=== PATIENT | female | born 1945 | race Caucasian/White ===

== ENCOUNTER 2018-03-17 12:08 | Emergency (ER) | payer OTHER ==
--- OUTSIDE RECORDS SUMMARY | 2018-03-17 12:09 | XMS REPORT | Clinical Summary ---
:1945 Author Organization [facility] Address [address] [place] [address] Care Team Providers Name Role Phone Asked, No Pcp Primary Care Provider Unavailable Allergies Active Allergy Reactions Severity Noted Date Comments Codeine 10/31/2017 Hydrocodone Itching, Swelling, Rash Low 09/15/2017 Latex 10/31/2017 Methylprednisolone 09/15/2017 Morphine 10/31/2017 Nsaids (Non-Steroidal 10/31/2017 Anti-Inflammatory Drug) Penicillins 10/31/2017 Sulfa (Sulfonamide Antibiotics) 10/31/2017 Ketorolac 10/31/2017 Current Medications Prescription Sig. Disp. Refills Start Date End Date Status allopurinol 07/18/2017 Active (ZYLOPRIM) 300 MG tablet atorvastatin 07/18/2017 Active (LIPITOR) 40 MG tablet metoprolol tartrate 07/18/2017 Active (LOPRESSOR) 50 mg tablet potassium chloride 07/18/2017 Active (K-DUR) 20 MEQ CR tablet timolol (TIMOPTIC) 08/21/2017 Active 0.5 % ophthalmic solution torsemide (DEMADEX) 07/18/2017 Active 20 MG tablet aspirin (ECOTRIN) 81 Take 81 mg by Active MG enteric coated mouth daily. tablet Has not taken for two days ibuprofen Take 600 mg by Active (ADVIL,MOTRIN) 600 MG mouth every 8 tablet (eight) hours as needed for mild pain. lansoprazole Take 30 mg by Active (PREVACID) 30 MG mouth daily. capsule fluorouracil 5 % Apply Active solution topically. omeprazole (PriLOSEC) Take 40 mg by Active 40 MG capsule mouth daily. celecoxib (CeleBREX) Take 1 capsule 30 capsule 1 09/15/2017 10/15/2017 200 MG capsule (200 mg total) by mouth daily for 30 days. methocarbamol Take 1 tablet 90 tablet 1 09/15/2017 10/15/2017 (ROBAXIN-750) 750 MG (750 mg total) tablet by mouth 3 (three) times a day for 30 days. Active Problems Problem Noted Date Spondylosis of cervical region without myelopathy or radiculopathy 11/22/2017 Encounters Date Type Specialty Care Team Description 03/13/2018 Office Visit Orthopedic Surgery Raj Remy Trigger ring finger of Zaire CHAN MD left hand (Primary Dx) 11/22/2017 Office Visit Orthopedic Surgery Rubén Michelle Spondylosis of MD Danette cervical region without myelopathy or radiculopathy (Primary Dx) 10/31/2017 Hospital Encounter Radiology Rubén Michelle Cervical radiculopathy; MD Danette Osteoarthritis of spine with radiculopathy, cervical region 10/31/2017 Hospital Encounter Rubén Rouse Cervical radiculopathy; MD Danette Osteoarthritis of spine with radiculopathy, cervical region 10/09/2017 Orders Only Orthopedic Surgery Tal Baugh Cervical radiculopathy (Primary Dx); DEVIN Elliott Osteoarthritis of spine with radiculopathy, cervical region 09/15/2017 Office Visit Orthopedic Rubén Prajapati Cervical radiculopathy (Primary Dx); MD Danette Osteoarthritis of spine with radiculopathy, cervical region after 03/16/2017 Family History Medical History Relation Name Comments Cancer Father N Juan Holt Skin cancer Dementia Father N W Jonathon Heart disease Father N W Jonathon Stroke Father N W Jonathon Heart disease Sister Relation Name Status Comments Father N W Jonathon Mother Sister Social History Tobacco Use Types Packs/Day Years Used Date Former Smoker Cigarettes 2 45 06/05/1961 - 09/03/2008 Smokeless Tobacco: Never Used Alcohol Use Drinks/Week oz/Week Comments No Sex Assigned at Date Recorded Not on file Last Filed Vital Signs Vital Sign Reading Time Taken Blood Pressure 113/58 10/31/2017 11:30 AM CDT Pulse 56 10/31/2017 11:30 AM CDT Temperature 36.4 C (97.5 F) 10/31/2017 8:20 AM CDT Respiratory Rate 18 10/31/2017 8:20 AM CDT Oxygen Saturation 96% 10/31/2017 11:30 AM CDT Inhaled Oxygen Concentration - - Weight 78.5 kg (173 lb) 03/13/2018 1:42 PM CDT Height 165.1 cm (5' 5") 03/13/2018 1:42 PM CDT Body Mass Index 28.79 03/13/2018 1:42 PM CDT Plan of Treatment Date Type Specialty Care Team Description 03/23/2018 Office Visit [place] [address] [place] [address] [phone] Health Maintenance Due Date Last Done Comments BREAST CANCER SCREENING 1997 COLON CANCER SCREENING 1997 SHINGRIX VACCINE (#1) 1997 ZOSTER VACCINE 2007 PNEUMOCOCCAL POLYSACCHARIDE VACCINE AGE 65 AND OVER 2012 PNEUMOCOCCAL-13 2012 INFLUENZA VACCINE 01/03/2018 Procedures Procedure Name Priority Date/Time Associated Diagnosis Comments CT POST MYELOGRAM Routine 10/31/2017 10:30 AM Cervical Results for this CERVICAL CDT radiculopathy procedure are in Osteoarthritis of the results spine with section. radiculopathy, cervical region IR MYELOGRAM CERV Routine 10/31/2017 10:22 AM Cervical Results for this INCL INJ W S&I CDT radiculopathy procedure are in Osteoarthritis of the results spine with section. radiculopathy, cervical region XR CERVICAL SPINE Routine 09/15/2017 9:58 AM Neck pain Results for this COMPLETE W FLEX EXT CDT procedure are in the results section. after 03/16/[address] Post Myelogram Cervical (10/31/2017 10:30 AM) Narrative Performed At EXAMINATION:CT POST CONTRAST myelogram of the cervical spine with HM [facility] sagittal and coronal reformatted images. Automatic exposure control was utilized to lower patient radiation dosage. CLINICAL HISTORY:M54.12 Radiculopathycervical region, M47.22 Other spondylosis with radiculopathycervical region, cervical radiculopathy COMPARISON:Cervical spine x-rays from September 15, 2017. FINDINGS: There is reversal of the cervical lordosis and the cervical curvature is convex towards the left. The craniovertebral junction does not show abnormality. C2-3: There is moderate disc space narrowing. There is facet hypertrophic changes greater on the left and mild uncovertebral joint hypertrophy. There is central spondylosis and ligamentum flavum hypertrophy and mild narrowing of the AP dimension of the central subarachnoid space. There is moderate left foramen stenosis. C3-4: There is mild anterolisthesis with mild disc space narrowing. There is dorsal spondylosis with central protrusion indenting the anterior cord. There is ligamentum flavum hypertrophy. There is moderate narrowing of the AP dimension of the central subarachnoid space. There is facet and uncovertebral joint hypertrophic changes with mild to moderate left and mild right foramen stenosis. C4-5: There is severe disc space narrowing. There is dorsal spondylosis indenting the anterior cord greater on the left with mass effect on the left ventral nerve root. There is ligamentum flavum hypertrophy with indentation of the posterior lateral subarachnoid space. There is moderate narrowing of the AP dimension of the central subarachnoid space. This is less prominent compared with the myelogram felt to be due to differences in patient positioning. There are facet and uncovertebral joint hypertrophic changes with severe left and mild to moderate right foramen stenosis. C5-6: There is severe disc space narrowing. There is dorsal spondylosis indenting the anterior cord. There is ligamentum flavum hypertrophy. There is mild to moderate narrowing of the AP dimension of the central subarachnoid space. There is facet and uncovertebral joint hypertrophic changes with severe right and mild left foramen stenosis. C6-7: There is severe disc space narrowing with surrounding endplate degenerative changes and Schmorl's nodes. There is dorsal spondylosis indenting the anterior subarachnoid space. There is facet and uncovertebral joint hypertrophic changes with mild foramen narrowing and mild narrowing of the AP dimension of the central subarachnoid space. C7-T1: There is facet hypertrophic changes. There is epidural fat and mild narrowing of the subarachnoid space. There is no significant foramen stenosis. T1-2: There are facet hypertrophic changes with congenital foramen stenosis. There is uncovertebral joint hypertrophy with moderate left and mild right foramen stenosis. There is epidural fat and mild narrowing of the subarachnoid space. The study was not performed for proper imaging of soft tissue structures in the neck and chest. There are a few areas of calcification of saucedo of some of the arteries. Artifacts obscure the thyroid gland without a definite mass seen in the thyroid gland. IMPRESSION: Degenerative changes with multilevel foramen stenosis and areas of cord flattening as described. There is mass effect on some of the nerve roots in the subarachnoid space greatest on the left at the L4-5 level. There is canal stenosis is most prominent at C3-4 and C4-5. The canal stenosis at C4-5 is less prominent felt to be due to the differences in patient's neck positioning [id number] Procedure Note Hm Interface, Radiology Results Incoming - 10/31/2017 1:31 PM CDT EXAMINATION: CT POST CONTRAST myelogram of the cervical spine with sagittal and coronal reformatted images. Automatic exposure control was utilized to lower patient radiation dosage. CLINICAL HISTORY: M54.12 Radiculopathy cervical region, M47.22 Other spondylosis with radiculopathy cervical region, cervical radiculopathy COMPARISON: Cervical spine x-rays from September 15, 2017. FINDINGS: There is reversal of the cervical lordosis and the cervical curvature is convex towards the left. The craniovertebral junction does not show abnormality. C2-3: There is moderate disc space narrowing. There is facet hypertrophic changes greater on the left and mild uncovertebral joint hypertrophy. There is central spondylosis and ligamentum flavum hypertrophy and mild narrowing of the AP dimension of the central subarachnoid space. There is moderate left foramen stenosis. C3-4: There is mild anterolisthesis with mild disc space narrowing. There is dorsal spondylosis with central protrusion indenting the anterior cord. There is ligamentum flavum hypertrophy. There is moderate narrowing of the AP dimension of the central subarachnoid space. There is facet and uncovertebral joint hypertrophic changes with mild to moderate left and mild right foramen stenosis. C4-5: There is severe disc space narrowing. There is dorsal spondylosis indenting the anterior cord greater on the left with mass effect on the left ventral nerve root. There is ligamentum flavum hypertrophy with indentation of the posterior lateral subarachnoid space. There is moderate narrowing of the AP dimension of the central subarachnoid space. This is less prominent compared with the myelogram felt to be due to differences in patient positioning. There are facet and uncovertebral joint hypertrophic changes with severe left and mild to moderate right foramen stenosis. C5-6: There is severe disc space narrowing. There is dorsal spondylosis indenting the anterior cord. There is ligamentum flavum hypertrophy. There is mild to moderate narrowing of the AP dimension of the central subarachnoid space. There is facet and uncovertebral joint hypertrophic changes with severe right and mild left foramen stenosis. C6-7: There is severe disc space narrowing with surrounding endplate degenerative changes and Schmorl's nodes. There is dorsal spondylosis indenting the anterior subarachnoid space. There is facet and uncovertebral joint hypertrophic changes with mild foramen narrowing and mild narrowing of the AP dimension of the central subarachnoid space. C7-T1: There is facet hypertrophic changes. There is epidural fat and mild narrowing of the subarachnoid space. There is no significant foramen stenosis. T1-2: There are facet hypertrophic changes with congenital foramen stenosis. There is uncovertebral joint hypertrophy with moderate left and mild right foramen stenosis. There is epidural fat and mild narrowing of the subarachnoid space. The study was not performed for proper imaging of soft tissue structures in the neck and chest. There are a few areas of calcification of saucedo of some of the arteries. Artifacts obscure the thyroid gland without a definite mass seen in the thyroid gland. IMPRESSION: Degenerative changes with multilevel foramen stenosis and areas of cord flattening as described. There is mass effect on some of the nerve roots in the subarachnoid space greatest on the left at the L4-5 level. There is canal stenosis is most prominent at C3-4 and C4-5. The canal stenosis at C4-5 is less prominent felt to be due to the differences in patient's neck positioning [facility]-[id number] Performing Organization Address City/State/Zipcode Phone Number [facility] [address] [place] [address] IR Myelogram Cerv Incl Inj W S&I (10/31/2017 10:22 AM) Narrative Performed At EXAMINATION:IR MYELOGRAM CERV INCL INJ W S&I [facility] CLINICAL HISTORY:M54.12 Radiculopathycervical region, M47.22 Other spondylosis with radiculopathycervical region, left cervical radiculopathy. 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 COMPARISON:Cervical spine x-rays from September 15, 2017. FINDINGS: Informed consent was obtained from the patient prior to the exam. Total fluoroscopy time was 0.20 minutes. Total radiation dosage was 16 mGy. 10 images were obtained during the exam. The patient was prepped in a sterile fashion in the prone position. 1% Xylocaine was utilized for local anesthesia. 2 mg of by mouth Ativan were given for sedation. Utilizing fluoroscopic guidance a 22-gauge spinal needle was placed into the subarachnoid space at the L3-4 level. Approximately 10 mL of 300 mg percent iohexol was injected intrathecal and multiple spot radiograph of the cervical spine were obtained. There were no complications. The primary surgeon was Dr. Lujan. There were no assistants. There was no significant blood loss. The patient was sent to the CT area after the procedure and then to the recovery room. She was discharged after she met discharge criteria. There is poor contrast opacification above the C4-5 level limiting evaluation above this level suggesting severe canal stenosis. There is a nerve root sleeve defect on the right at C4-5 and C5-6. The distal C6-7 and C7-1 nerve root sleeves do not opacify well. These findings will be better evaluated on CT to follow. There is anterior indentation on the subarachnoid space more prominent at C4-5 where the cord is indented with mild anterior indentation at C5-6 and C6-7. There is posterior indentation of the subarachnoid space greater in the mid cervical region. IMPRESSION: Successful fluoroscopic-guided cervical myelogram to evaluate the patient's left lumbar radiculopathy. There is canal stenosis more prominent at the C4-5 level. [facility]-[id number] Procedure Note Hm Interface, Radiology Results Incoming - 10/31/2017 1:29 PM CDT EXAMINATION: IR MYELOGRAM CERV INCL INJ W S&I CLINICAL HISTORY: M54.12 Radiculopathy cervical region, M47.22 Other spondylosis with radiculopathy cervical region, left cervical radiculopathy. 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 COMPARISON: Cervical spine x-rays from September 15, 2017. FINDINGS: Informed consent was obtained from the patient prior to the exam. Total fluoroscopy time was 0.20 minutes. Total radiation dosage was 16 mGy. 10 images were obtained during the exam. The patient was prepped in a sterile fashion in the prone position. 1% Xylocaine was utilized for local anesthesia. 2 mg of by mouth Ativan were given for sedation. Utilizing fluoroscopic guidance a 22-gauge spinal needle was placed into the subarachnoid space at the L3-4 level. Approximately 10 mL of 300 mg percent iohexol was injected intrathecal and multiple spot radiograph of the cervical spine were obtained. There were no complications. The primary surgeon was Dr. Lujan. There were no assistants. There was no significant blood loss. The patient was sent to the CT area after the procedure and then to the recovery room. She was discharged after she met discharge criteria. There is poor contrast opacification above the C4-5 level limiting evaluation above this level suggesting severe canal stenosis. There is a nerve root sleeve defect on the right at C4-5 and C5-6. The distal C6-7 and C7-1 nerve root sleeves do not opacify well. These findings will be better evaluated on CT to follow. There is anterior indentation on the subarachnoid space more prominent at C4-5 where the cord is indented with mild anterior indentation at C5-6 and C6-7. There is posterior indentation of the subarachnoid space greater in the mid cervical region. IMPRESSION: Successful fluoroscopic-guided cervical myelogram to evaluate the patient's left lumbar radiculopathy. There is canal stenosis more prominent at the C4-5 level. [facility]-[id number] Performing Organization Address City/[facility]/Zipcode Phone Number [facility] [address] [place] [address] XR Cervical Spine Complete w flex/ext (09/15/2017 9:58 AM) Narrative Performed At 7 views of the cervical spine are reviewed. These demonstrate satisfactory [facility] sagittal coronal balance. There is osteophyte off the facet joints on AP radiograph. Lateral view demonstrates disc space degeneration at C4-5, C5-6 and C6-7 most severely. Oblique views demonstrate neural foraminal compromise on the right due to uncovertebral osteophytes at C5-6 and C6-7. There is no evidence of fracture or subluxation. There is no instability on flexion-extension views. Odontoid view is unremarkable Performing Organization Address City/[facility] Phone Number [facility] [address] [place] [address] after 03/16/2017 Insurance Payer Benefit Plan / Group Subscriber ID Type Phone Address MEDICARE MEDICARE PART A AND B xxxxxxxxxx Medicare [place], [place] [employer] INS [employer] OF xxxxxxxxxx [employer] Home: [address] y [phone] [address]
[2018-03-17 13:29] LABS: Absolute Lymphocytes (CBC) 2.5 K/uL (0.7-4.9); Absolute Monocytes 0.5 K/uL (0.1-1.3); Absolute Neutrophil 3.6 K/uL (1.8-8.0); Basophils % 0.8 % (0-1.3); Eosinophils % 1.1 % (0-4.4); Lymphocytes % 36.2 % (15.3-44.8); MCH 31.8 pg (27.0-35.0); MPV 8.5 fL (7.6-11.3); RBC Red Blood Cell Count 4.17 M/uL (3.86-4.86)
[2018-03-17 13:55] LABS: ALT/SGPT 32 U/L (12-78); AST/SGOT 33 U/L (15-37); Albumin 3.8 g/dL (3.4-5.0); Alkaline Phosphatase 110 U/L (45-117); BUN Blood Urea Nitrogen 12 mg/dL (7-18); Bicarbonate 29 mmol/L (21-32); Bilirubin Direct 0.2 mg/dL (0-0.2); Bilirubin Total 0.9 mg/dL (0.2-1.0); Glucose Level 132 mg/dL (74-106); Magnesium 1.7 mg/dL (1.8-2.4); NT PRO-BNP 59 pg/mL (<125); Potassium 3.1 mmol/L (3.5-5.1); Protein, Total 7.5 g/dL (6.4-8.2); Sodium Level 142 mmol/L (136-145); Troponin (Emerg Dept Use Only) < 0.02 ng/mL (0.0-0.045)
--- NOTE | 2018-03-17 14:05 | RAD REPORT ---
EXAM DESCRIPTION: RAD - Chest Single View - 03/17/2018 1:45 pm CLINICAL HISTORY: Cough, chest pain COMPARISON: April 2012 TECHNIQUE: AP portable chest image was obtained 1257 hours . FINDINGS: Lungs are clear. Heart and vasculature are normal. No measurable pleural effusion and no p neumothorax. No acute bony abnormality seen. No acute aortic findings suspected. IMPRESSION: No acute cardiopulmonary process. No significant change from comparison.
--- NOTE | 2018-03-17 14:07 | RAD REPORT ---
EXAM DESCRIPTION: US - Extrem Venous W Compress Js - 03/17/2018 1:41 pm CLINICAL HISTORY: Leg pain and swelling COMPARISON: None. TECHNIQUE: Real-time sonographic evaluation of the bilateral lower extremity common femoral, superfi cial femoral, popliteal and posterior tibial veins was performed. FINDINGS: Normal compressibility, flow augmentation, phasic flow and spontaneous flow are identified in the left and right lower extremity common femoral, superficial femoral, popliteal and posterior t ibial veins. No intraluminal filling defects seen. IMPRESSION: No DVT in either lower extremity.
--- NOTE | 2018-03-17 14:32 | ER ---
Nurse's Notes [facility] Name: Adela Galaviz Age: 72 yrs Sex: Female : 1945 Arrival Date: 03/17/2018 Time: 12:08 Bed 5 Private MD: Diagnosis: Pain in right leg-muscular pain, tear Presentation: 03/17 12:13 Presenting complaint: Patient states: I have had pain in my right upper leg for the la1 last week that is very bad and now it is bruising badly. Pt states hx of DVT. Transition of care: patient was not received from another setting of care. Onset of symptoms was March 17, 2018. Risk Assessment: Do you want to hurt yourself or someone else? Patient reports no desire to harm self or others. Initial Sepsis Screen: Does the patient meet any 2 criteria? No. Patient's initial sepsis screen is negative. Does the patient have a suspected source of infection? No. Patient's initial sepsis screen is negative. Care prior to arrival: None. 12:13 Method Of Arrival: Wheelchair la1 12:13 Acuity: JASON 3 la1 Historical: - Allergies: 12:16 PENICILLINS; la1 12:16 steroids; la1 12:16 Sulfa (Sulfonamide Antibiotics); la1 12:16 Morphine; la1 12:16 [place]; la1 12:16 codeine sulfate; la1 12:16 Toradol; la1 12:16 NSAIDS; la1 12:16 Latex, Natural Rubber; la1 - PMHx: 12:16 Fibromyalgia; TIA; gastritis; Diverticulitis; chronic pancreatitis; Hypertension; High la1 Cholesterol; Gout; skin cancer; - Immunization history:: Adult Immunizations up to date. - Social history:: Smoking status: Patient/guardian denies using tobacco. - Ebola Screening: : No symptoms or risks identified at this time. - Family history:: not pertinent. Screenin:55 Abuse screen: Denies threats or abuse. Denies injuries from another. Nutritional sg screening: No deficits noted. Tuberculosis screening: No symptoms or risk factors identified. Never had TB. Fall Risk None identified. Assessment: 12:55 General: Appears in no apparent distress. comfortable, well groomed, well developed, sg well nourished, Behavior is calm, cooperative, appropriate for age. Pain: Complains of pain in medial aspect of right thigh Pain does not radiate. Quality of pain is described as aching, sharp. Neuro: Level of Consciousness is awake, alert, obeys commands, Oriented to person, place, time, Fish Bin Tender are equal bilaterally Moves all extremities. Full function Speech is normal, Facial symmetry appears normal. Cardiovascular: Capillary refill is brisk in bilateral fingers Patient's skin is warm and dry. Chest pain is denied. Respiratory: Airway is patent Respiratory effort is even, unlabored, Respiratory pattern is regular, symmetrical. GI: Abdomen is round non-distended, obese. : No signs and/or symptoms were reported regarding the genitourinary system. EENT: No deficits noted. Derm: Skin is pink, warm \T\ dry. Musculoskeletal: Circulation, motion, and sensation intact. Range of motion: intact in all extremities. Vital Signs: 12:17 Pulse 65; Resp 16; Temp 97.8(TE); Pulse Ox 96% on R/A; Weight 78.47 kg; la1 12:18 BP 154 / 61; la1 ED Course: 12:08 Patient arrived in ED. tw3 12:14 Triage completed. la1 12:16 Arm band placed on left wrist. la1 12:21 Carlos Blackburn MD is Attending Physician. kera 12:33 Liz Hackett, RN is Primary Nurse. iw 12:55 Patient has correct armband on for positive identification. Bed in low position. Call sg light in reach. Pulse ox on. NIBP on. 13:39 X-ray completed. Portable x-ray completed in exam room. Patient tolerated procedure la2 well. 13:40 Ultrasound completed. Patient tolerated well. Notified ED Physician nilda. sg3 13:41 US Extremity Venous W Compression Js In Process Unspecified. EDMS 13:44 X-ray completed. Portable x-ray completed in exam room. Patient tolerated procedure jb2 well. 13:45 XRAY Chest (1 view) In Process Unspecified. EDMS 14:25 Michael Hubbard, CRISTINA is Primary Nurse. sg 14:25 EKG done, by ED staff, reviewed by Carlos Blackburn MD. jb1 14:56 Awaiting: IV magnesium to completely infuse prior to d/c to home. sg 15:40 No provider procedures requiring assistance completed. Patient did not have IV access sg during this emergency room visit. Administered Medications: 14:30 Drug: Magnesium Sulfate 1 grams Route: IVPB; Infused Over: 1 hrs; Site: right forearm; sg 14:37 Drug: Potassium Effervescent Tablet 25 mEq Route: PO; sg Outcome: 14:32 Discharge ordered by . kera 15:40 Discharged to home ambulatory, with family. 15:40 Condition: good 15:40 Discharge instructions given to patient, Instructed on discharge instructions, follow up and referral plans. safety practices, Demonstrated understanding of instructions, follow-up care. 15:42 Patient left the ED. iw Signatures: Dispatcher [employer] Marcin Osorio1 Michael Hubbard RN RN sg Anderson, Corey, MD MD cha Buechter, Jesse jb2 Liz Hackett RN RN Justus Blackwell RN RN la1 Wade, Tia tw3 Bertha Villagomez2 Rubia Collins sg3
--- NOTE | 2018-03-17 14:32 | EDPHYS ---
Physician Documentation [facility] Name: Adela Galaviz Age: 72 yrs Sex: Female : 1945 Arrival Date: 03/17/2018 Time: 12:08 Bed 5 Private MD: ED Physician Carlos Blackburn HPI: 03/17 14:15 This 72 yrs old Female presents to ER via Wheelchair with complaints of Leg kera Pain. 14:15 The patient presents with decreased range of motion, pain, tenderness. The complaints kera affect the medial aspect of right thigh. Context: The problem was sustained at an unknown site, resulted from an unknown cause, the patient can fully bear weight, the patient is able to ambulate, Problem is a result from a previous injury: No. Onset: The symptoms/episode began/occurred 2 day(s) ago. Modifying factors: The symptoms are alleviated by remaining still, the symptoms are aggravated by movement, weight bearing. Associated signs and symptoms: The patient has no apparent associated signs or symptoms. Treatment prior to arrival includes: over the counter medications, NSAIDS. Severity of symptoms: At their worst the symptoms were mild, in the emergency department the symptoms are unchanged. The patient has not experienced similar symptoms in the past. Historical: - Allergies: 12:16 PENICILLINS; la1 12:16 steroids; la1 12:16 Sulfa (Sulfonamide Antibiotics); la1 12:16 Morphine; la1 12:16 Hemet; la1 12:16 codeine sulfate; la1 12:16 Toradol; la1 12:16 NSAIDS; la1 12:16 Latex, Natural Rubber; la1 - PMHx: 12:16 Fibromyalgia; TIA; gastritis; Diverticulitis; chronic pancreatitis; Hypertension; High la1 Cholesterol; Gout; skin cancer; - Immunization history:: Adult Immunizations up to date. - Social history:: Smoking status: Patient/guardian denies using tobacco. - Ebola Screening: : No symptoms or risks identified at this time. - Family history:: not pertinent. ROS: 14:15 Constitutional: Negative for fever, chills, and weight loss, Eyes: Negative for injury, kera pain, redness, and discharge, ENT: Negative for injury, pain, and discharge, Neck: Negative for injury, pain, and swelling, Cardiovascular: Negative for chest pain, palpitations, and edema, Respiratory: Negative for shortness of breath, cough, wheezing, and pleuritic chest pain, Abdomen/GI: Negative for abdominal pain, nausea, vomiting, diarrhea, and constipation, Back: Negative for injury and pain, : Negative for injury, bleeding, discharge, and swelling, Skin: Negative for injury, rash, and discoloration, Neuro: Negative for headache, weakness, numbness, tingling, and seizure, Psych: Negative for depression, anxiety, suicide ideation, homicidal ideation, and hallucinations, Allergy/Immunology: Negative for hives, rash, and allergies, Endocrine: Negative for neck swelling, polydipsia, polyuria, polyphagia, and marked weight changes, Hematologic/Lymphatic: Negative for swollen nodes, abnormal bleeding, and unusual bruising. 14:15 MS/extremity: Positive for decreased range of motion, ecchymosis, pain, tenderness, of the medial aspect of right thigh. Exam: 14:15 Constitutional: This is a well developed, well nourished patient who is awake, alert, kera and in no acute distress. Head/Face: Normocephalic, atraumatic. Eyes: Pupils equal round and reactive to light, extra-ocular motions intact. Lids and lashes normal. Conjunctiva and sclera are non-icteric and not injected. Cornea within normal limits. Periorbital areas with no swelling, redness, or edema. ENT: Nares patent. No nasal discharge, no septal abnormalities noted. Tympanic membranes are normal and external auditory canals are clear. Oropharynx with no redness, swelling, or masses, exudates, or evidence of obstruction, uvula midline. Mucous membranes moist. Neck: Trachea midline, no thyromegaly or masses palpated, and no cervical lymphadenopathy. Supple, full range of motion without nuchal rigidity, or vertebral point tenderness. No Meningismus. Chest/axilla: Normal chest wall appearance and motion. Nontender with no deformity. No lesions are appreciated. Cardiovascular: Regular rate and rhythm with a normal S1 and S2. No gallops, murmurs, or rubs. Normal PMI, no JVD. No pulse deficits. Respiratory: Lungs have equal breath sounds bilaterally, clear to auscultation and percussion. No rales, rhonchi or wheezes noted. No increased work of breathing, no retractions or nasal flaring. Abdomen/GI: Soft, non-tender, with normal bowel sounds. No distension or tympany. No guarding or rebound. No evidence of tenderness throughout. Back: No spinal tenderness. No costovertebral tenderness. Full range of motion. Skin: Warm, dry with normal turgor. Normal color with no rashes, no lesions, and no evidence of cellulitis. Neuro: Awake and alert, GCS 15, oriented to person, place, time, and situation. Cranial nerves II-XII grossly intact. Motor strength 5/5 in all extremities. Sensory grossly intact. Cerebellar exam normal. Normal gait. Psych: Awake, alert, with orientation to person, place and time. Behavior, mood, and affect are within normal limits. 14:15 Musculoskeletal/extremity: ROM: intact in all extremities, full active range of motion, full passive range of motion, Circulation is intact in all extremities. Sensation intact. Compartment Syndrome exam of affected extremity: is normal. DVT Exam: no swelling, negative Homans' sign noted on exam, no appreciated bluish discoloration, no erythema, no increased warmth, pain, tenderness, that is mild, of the right leg, of the medial aspect of right thigh. Vital Signs: 12:17 Pulse 65; Resp 16; Temp 97.8(TE); Pulse Ox 96% on R/A; Weight 78.47 kg; la1 12:18 BP 154 / 61; la1 MDM: 12:21 Patient medically screened. [facility] 14:18 Data reviewed: vital signs, nurses notes, lab test result(s), EKG, radiologic studies, kera doppler, plain films. 03/17 12:46 Order name: Basic Metabolic Panel; Complete Time: 14: [facility] 03/17 12:46 Order name: CBC with Diff; Complete Time: 14:06 [facility] 03/17 12:46 Order name: LFT's; Complete Time: 14: [facility] 03/17 12:46 Order name: Magnesium; Complete Time: 14:06 [facility] 03/17 12:46 Order name: NT PRO-BNP; Complete Time: 14:06 [facility] 03/17 12:46 Order name: PT-INR; Complete Time: 14: [facility] 03/17 12:46 Order name: Troponin (emerg Dept Use Only); Complete Time: 14: [facility] 03/17 12:46 Order name: XRAY Chest (1 view); Complete Time: 14:13 [facility] 03/17 12:46 Order name: EKG; Complete Time: 12:47 [facility] 03/17 12:46 Order name: Cardiac monitoring; Complete Time: 13:20 [facility] 03/17 12:46 Order name: US Extremity Venous W Compression Js; Complete Time: 14:13 [facility] 03/17 12:46 Order name: EKG - Nurse/Tech; Complete Time: 13:21 [facility] 03/17 12:46 Order name: IV Saline Lock; Complete Time: 13:21 [facility] 03/17 12:46 Order name: Labs collected and sent; Complete Time: 13:21 [facility] 03/17 12:46 Order name: O2 Per Protocol; Complete Time: 13:21 [facility] 03/17 12:46 Order name: O2 Sat Monitoring; Complete Time: 13:21 [facility] 03/17 14:14 Order name: PO challenge: juice; Complete Time: 14:37 [facility] Administered Medications: 14:30 Drug: Magnesium Sulfate 1 grams Route: IVPB; Infused Over: 1 hrs; Site: right forearm; 14:37 Drug: Potassium Effervescent Tablet 25 mEq Route: PO; Disposition: 03/17/18 14:32 Discharged to Home. Impression: Pain in right leg - muscular pain, tear. - Condition is Stable. - Discharge Instructions: Musculoskeletal Pain. - Medication Reconciliation Form, Thank You Letter, Antibiotic Education, Prescription Opioid Use form. - Follow up: Private Physician; When: 2 - 3 days; Reason: Recheck today's complaints, Continuance of care, Re-evaluation by your physician. - Problem is new. - Symptoms have improved. Signatures: Dispatcher [employer] [facility] Michael Hubbard RN RN sg Anderson, Corey, MD MD cha Williams, Irene, RN RN Justus Blackwell RN RN la1 Corrections: (The following items were deleted from the chart) 12:52 12:20 Chest Single View+RAD.RAD.BRZ ordered. [facility] 15:42 14:32 03/17/2018 14:32 Discharged to Home. Impression: Pain in right leg - muscular iw pain, tear. Condition is Stable. Forms are Medication Reconciliation Form, Thank You Letter, Antibiotic Education, Prescription Opioid Use. Follow up: Private Physician; When: 2 - 3 days; Reason: Recheck today's complaints, Continuance of care, Re-evaluation by your physician. Problem is new. Symptoms have improved. kera
[2018-03-17] MEDS ORDERED: POTASSIUM 25 MEQ EFFERV TAB ONE (14:33)
[2018-03-17] MEDS ORDERED: MAGNESIUM SULFATE 1 gm IVPB 1 GM/100 ML BAG IV ONE (14:34)
--- NOTE | 2018-03-19 10:14 | EKG ---
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
== END 2018-03-17 15:42 | disposition home or self-care (01) ==
LOC: ER 12:08
DX: S76.911A Strain of unspecified muscles, fascia and tendons at thigh level, right thigh, initial encounter (principal); X58.XXXA Exposure to other specified factors, initial encounter; Z88.0 Allergy status to penicillin; Z88.2 Allergy status to sulfonamides; Z88.6 Allergy status to analgesic agent; Z91.040 Latex allergy status
CPT/HCPCS: 36415; 71045; 80048; 80076; 83735; 83880; 84484; 85025; 85610; 93005; 93970; 96374; 99284; J3475

== ENCOUNTER 2020-03-24 14:31 | Emergency (ER) | payer OTHER ==
--- OUTSIDE RECORDS SUMMARY | 2020-03-24 14:34 | XMS REPORT | Summary of Care ---
:1945 Author Organization [facility] - Health Address [address] [place] [address] Care Team Providers Name Role Phone Ana Ballesteros MD Primary Care Provider Encounter Details Date Type Department Care Team Description 02/04/2020 Orders Only [facility] Doctor Unassigned, No [address] [facility] [place] [address] [address] [place] [address] Allergies Active Allergy Reactions Severity Noted Date Comments Codeine Swelling 02/03/2020 Corticosteroids Swelling 02/03/2020 (Glucocorticoids) Gabapentin Other - See comments 02/03/2020 Hypoten samanta, syncope Hydrocodone Swelling 02/03/2020 Latex Rash High 02/03/2020 Pregabalin Other - See comments 02/03/2020 Hypoten samanta, syncope Morphine Hives 02/03/2020 Tapentadol Other - See comments 02/03/2020 Hypoten samanta, syncope Penicillins Anaphylaxis 02/03/2020 Sulfa (Sulfonamide Hives 02/03/2020 Antibiotics) Ketorolac Hives 02/03/2020 documented as of this encounter (statuses as of 02/04/2020) Medications Medication Sig Dispensed Refills Start Date End Date Status atorvastatin 40 mg tablet Take 40 mg by 0 Active mouth at bedtime. metoprolol tartrate 50 mg Take 50 mg by 0 Active tablet mouth 2 (two) times daily. allopurinoL 300 mg tablet Take 300 mg by 0 Active mouth daily. torsemide 20 mg tablet Take 20 mg by 0 Active mouth. potassium chloride Take by mouth. 0 Active (KCL-20 ORAL) aspirin 81 mg chewable Take 81 mg by 0 Active tablet mouth daily. acetaminophen 325 mg Cap Take 1,500 mg 0 Active by mouth as needed. timoloL 0.5 % ophthalmic Place 1 Drop in 0 Active solution both eyes 2 (two) times daily. [id number]-ddnscwa Take by mouth. 0 Active (CREON) 36,000-114,000- Take 2 capsules 180,000 unit CpDR by mouth with meals and 1 with each snack. hydroxychloroquine Take 200 mg by 0 Active sulfate mouth daily. (HYDROXYCHLOROQUINE ORAL) carBAMazepine (TEGRETOL) Take 200 mg by 0 Active 200 mg tablet mouth daily. coconut oil 1,000 mg Cap Take by mouth. 0 Active documented as of this encounter (statuses as of 02/04/2020) Active Problems Not on filedocumented as of this encounter (statuses as of 02/04/2020) Social History Tobacco Use Types Packs/Day Years Used Date Former Smoker Smokeless Tobacco: Never Used Sex Assigned at Date Recorded Not on file COVID-19 Exposure Response Date Recorded In the last month, have you been in contact with No / Unsure 02/03/2020 11:02 AM CDT someone who was confirmed or suspected to have Coronavirus / COVID-19? documented as of this encounter Last Filed Vital Signs Not on filedocumented in this encounter Plan of Treatment Date Type Specialty Care Team Description 02/04/2020 Laboratory Only Clinical Medical Only, Adc Test Laboratory 02/05/2020 Hospital Surgery Zion Soler Encounter MD Aislinn [address] [place] [address] [place] [phone] 02/05/2020 Anesthesia Event Surgery Suleiman Frausto, [address] [phone] 02/05/2020 Surgery Surgery Zion Soler PHACOEMULSI FICATION OF MD Aislinn CATARACT WITH INTRAOCULAR [facility] LENS IMPLANT [place] [phone] Health Maintenance Due Date Last Done Comments HEPATITIS C (HCV) SCREEN 1945 Depression Screening 1959 DTaP,Tdap,and Td Vaccines (1 - Tdap) 1966 Breast Cancer Screening (MAMMOGRAM) 1987 COLON CANCER SCREENING ANNUAL FIT/FOBT 1997 COLON CANCER SCREENING FIT DNA EVERY 3 YEARS 1997 COLON CANCER SCREENING SIGMOIDOSCOPY EVERY 5 YEARS 1997 COLONOSCOPY 1997 Colorectal Cancer Screening 1997 Zoster Recombinant Vaccine (SHINGRIX) (1 of 2) 1997 LUNG CANCER SCREEN: Recommended for age 55-80 with 30 + 05/27/20 02 pack year history Medicare Wellness Visit 2012 Osteoporosis Screening 2012 PNEUMOCOCCAL VACCINES 65+ (1 of 1 - PPSV23) 2012 INFLUENZA VACCINE (#1) 2020 documented as of this encounter Procedures Procedure Name Priority Date/Time Associated Diagnosis Comme nts ASSIGNMENT OF BENEFITS Routine 02/04/2020 8:23 AM CDT documented in this encounter Results Not on filedocumented in this encounter Insurance Payer Benefit Plan / Subscriber ID Effective Phone Address T ype Group Dates MEDICARE MEDICARE PART A [id number] 2012-Pre [phone] X Medicare & B sent [id number] [place] [id number] [facility] [id number] 2014-Pre Indemnity AND LIFE BENEFITS sent documented as of this encounter
--- OUTSIDE RECORDS SUMMARY | 2020-03-24 14:34 | XMS REPORT | Clinical Summary ---
:1945 Author Organization [facility] Address [address] [place] [address] Care Team Providers Name Role Phone MD Lesli Primary Care Provider Allergies Active Allergy Reactions Severity Noted Date Comments Codeine Itching, Rash Low 10/31/2017 Hydrocodone Itching, Swelling, Low 09/15/2017 Rash Latex Dermatitis Medium 10/31/2017 Pregabalin Other (See 01/17/2019 Hypotension, Comments) fainting Methylprednisolone Swelling 09/15/2017 Morphine 10/31/2017 Gabapentin Other (See 01/17/2019 Hypotension Comments) Hydrocodone-Acetaminophen 01/17/2019 Nsaids (Non-Steroidal Swelling 10/31/2017 "water retension" Anti-Inflammatory Drug) Tapentadol Other (See 01/17/2019 Hypotension, pa sses Comments) out Oxycodone Itching, Swelling, Low 01/22/2019 Rash Penicillins Anaphylaxis High 10/31/2017 Oxycodone-Acetaminophen Itching, Rash Low 01/17/2019 Sulfa (Sulfonamide 10/31/2017 Antibiotics) Ketorolac 10/31/2017 Medications Medication Sig Dispensed Refills Start Date End Date Status allopurinol (ZYLOPRIM) 0 07/18/2017 Active 300 MG tablet atorvastatin (LIPITOR) 0 07/18/2017 Active 40 MG tablet metoprolol tartrate Take 50 mg by 0 07/18/2017 Active (LOPRESSOR) 50 mg tablet mouth 2 (two) times a day. potassium chloride 0 07/18/2017 Active (K-DUR) 20 MEQ CR tablet timolol (TIMOPTIC) 0.5 % 0 08/21/2017 Active ophthalmic solution torsemide (DEMADEX) 20 Take 20 mg by 0 07/18/2017 Active MG tablet mouth as needed. aspirin (ECOTRIN) 81 MG Take 81 mg by 0 Active enteric coated tablet mouth daily. Has not taken for two days ibuprofen (ADVIL,MOTRIN) Take 600 mg by 0 Active 600 MG tablet mouth every 8 (eight) hours as needed for mild pain. omeprazole (PriLOSEC) 40 Take 40 mg by 0 Active MG capsule mouth. acetaminophen (TYLENOL) Take 1,000 mg 0 Active 500 MG tablet by mouth as needed for mild pain. lipase/protease/amylase Take 2 0 Active (CREON ORAL) capsules by mouth 3 (three) times a day before meals. temazepam (RESTORIL) 30 Take 30 mg by 0 Active mg capsule mouth nightly as needed for sleep. hydroxychloroquine Take by mouth 0 Active (PLAQUENIL) 200 mg daily. tablet traMADol (ULTRAM) 50 mg Take 1 tablet 15 tablet 0 04/20/2018 1 06/20/2018 tablet (50 mg total) by mouth every 6 (six) hours as needed for moderate pain. 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 Surgical History Surgery Date Site/Laterality Comments FOOT SURGERY 06/05/1979 - 06/04/1980 HIP SURGERY 2012 right and left hip APPENDECTOMY HYSTERECTOMY 1969's GALLBLADDER SURGERY 1989' LAPAROSCOPIC COLON RESECTION STENT HERNIA REPAIR 1998, 2012 ABDOMINAL SURGERY Appendectomy,gallb ladder SPINE SURGERY BREAST SURGERY Bilateral breast reduction CHOLECYSTECTOMY COLON SURGERY 06/05/1979 - colon resection 06/04/1980 INJECTION, STEROID, EPIDURAL lum barrel and receiver aligner SURGERY 2002, 2008, 2010, 2012 JOINT REPLACEMENT 02/03/2013 - Left total left hip 03/04/2013 JOINT REPLACEMENT 05/05/2013 - Right total right hi p 06/04/2013 REVISION OR REMOVAL, 01/22/2019 Posterior Procedure: LUMBAR NEUROSTIMULATOR, SPINE REMOVAL O F BONE STIMULATOR; Earl geon: Rubén Michelle MD; Location: [facility] OR; Service: Orthopedics; Laterality: Post erior; Medical History Medical History Date Comments GERD (gastroesophageal reflux disease) Hypertension Osteoporosis Peptic ulceration Osteoporosis Fibromyositis Hypertension Fibromyalgia Diverticulitis Gastritis Pancreatitis, chronic (HCC) Hyperlipidemia Gout Clotting disorder (HCC) 1969 blood clot right leg Hypercholesteremia Arthritis Osteoarthritis Arthritis Cancer (HCC) Skin Cancer (HCC) Skin cancer H/O chronic pancreatitis DVT of popliteal vein (HCC) 1969 Gout Wears glasses Wears partial dentures Behind on immunizations Exercises daily Treadmill /20 mins, stationary bike every other day for 20 minutes. Diverticulitis of colon TIA (transient ischemic attack) 2017 Stroke (HCC) 2017 "Multiple TIAs" Family History Medical History Relation Name Comments Cancer Father N W Jonathon Skin cancer Dementia Father N W Hachencristian Heart disease Father N W Hachencristian Stroke Father N W Hachencristian Heart disease Sister Sis Relation Name Status Comments Father N W Jonathon Mother Sister Sis Social History Tobacco Use Types Packs/Day Years Used Date Former Smoker Cigarettes 2 45 06/05/1961 - 0 09/03/2008 Smokeless Tobacco: Never Used Alcohol Use Drinks/Week oz/Week Comments No Sex Assigned at Date Recorded Not on file Last Filed Vital Signs Not on file Plan of Treatment Health Maintenance Due Date Last Done Comments BREAST CANCER SCREENING 1997 COLONOSCOPY SCREENING 1997 SHINGLES VACCINES (#1) 1997 65+ PNEUMOCOCCAL VACCINE (1 of 1 - PPSV23) 2012 INFLUENZA VACCINE 01/04/2020 Results Not on fileafter 03/24/2019 Insurance Payer Benefit Plan / Subscriber ID Effective Dates Phone Addre ss Type Group MEDICARE MEDICARE PART A [id number] 2012-[place] Medicare AND B nt AETNA [facility] [id number] 2017-Vladislav [employer] [place] Advance Directives For more information, please contact: [phone] Type Date Recorded 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
--- OUTSIDE RECORDS SUMMARY | 2020-03-24 14:34 | XMS REPORT | Summary of Care ---
:1945 Author Organization [facility] Address [address] [place] [id number] Care Team Providers Name Role Phone Ana Ballesteros MD Primary Care Provider Encounter Details Date Type Department Care Team Description 02/04/2020 Letter (Out) ACC[facility] Maritza More RN [address] [phone] [place] [id number] Allergies Active Allergy Reactions Severity Noted Date [...] solution both eyes 2 (two) times daily. [id number] Take by mouth. 0 Active (CREON) 36,000-114,000- [...] Treatment Date Type Specialty Care Team Description 02/05/2020 Hospital Encounter Surgery Zion Soler MD [address] [place] [phone] 02/05/2020 Anesthesia Event Surgery Suleiman Frausto C [address] [phone] 02/05/2020 Surgery Surgery Zion Soler PHACOEMULSI FICATION BELLE Tao MD CATARACT WITH INTRAOCULAR [address] [place] [address] [phone] Health Maintenance Due Date Last Done Comments [...] (#1) 2020 documented as of this encounter Results Not on filedocumented in this encounter Additional Health Concerns Infection Onset Date Last Indicated Resolved Time COVID-19 Rule Out 02/04/2020 02/04/2020 02/04/2020 10: 14 AM CDT documented as of this encounter Insurance Payer Benefit Plan / Subscriber ID Effective Phone Address T [facility] Group Dates MEDICARE MEDICARE PART A [id number] 2012-Pre [phone] [address] X Medicare & B sent [id number] [place] [id number] [facility] [id number] 2014-Pre Indemnity AND LIFE BENEFITS sent documented as of this encounter
--- OUTSIDE RECORDS SUMMARY | 2020-03-24 14:34 | XMS REPORT | Continuity of Care Document ---
:1945 Author Organization [facility] t Address [address] [place] [address] Care Team Providers Name Role Phone Lesli FERGUSON Primary Care Physician Ryder FERGUSON, A Attending Clinician Only, Test Attending Clinician Unavailable Doctor Unassigned, Name Attending Clinician Unavailable Derik EVANS, T Attending Clinician Unavailable Pob, Lab Main Attending Clinician Unavailable Ryder FERGUSON, A Admitting Clinician Problems Condition Condition Condition Status Onset Resolution Last Treating Co mments Source Name Details Category Date Date Treatment Clinician Date History of History of Disease Active Overview : [place] lumbar lumbar 01-08 Added Methodi fusion fusion 00:00: automatic st 00 ally from request for surgery [id number] Presence Presence Disease Active Overview: [place] of of 01-08 Added Methodi retained retained 00:00: automatic st hardware hardware 00 ally from request for surgery [id number] Spondylosi Spondylosi Disease Active [place] s of s of 11-22 Method[facility] cervical cervical 00:00: st region region 00 without without myelopathy myelopathy or or radiculopa radiculopa thy thy H/O H/O Disease Active [place] chronic chronic Methodi pancreatit pancreatit st is is Gout Gout Disease Active [place] Methodi st Wears Wears Disease Active [place] glasses glasses Methodi st Wears Wears Disease Active [place] partial partial Methodi dentures dentures st Exercises Exercises Disease Active Overview: [place] daily daily Treadmill Methodi /20 mins, stationar y bike every other day for 20 minutes. Allergies, Adverse Reactions, Alerts Allergy Allergy Status Severity Reaction(s) Onset Inactive Treating Comm ents Source Name Type Date Date Clinician Oxycodon Propensi Active Itching, [place] ty to Swelling, 01-22 Methodi adverse Rash 00:00: st reaction 00 s to drug Pregabal Propensi Active Other (See Hypotensi [facility] in ty to Comments) 01-17 on, Methodi adverse 00:00: fainting st reaction 00 s to drug Gabapent Propensi Active Other (See Hypotensi [facility] in ty to Comments) 01-17 on Methodi adverse 00:00: st reaction 00 s to drug Hydrocod [place]i Active [place] one-Acet ty to 01-17 Methodi aminophe adverse 00:00: st n reaction 00 s to drug Tapentad Propensi Active Other (See Hypotensi [facility] ol ty to Comments) 01-17 on, Methodi adverse 00:00: passes st reaction 00 out s to drug Oxycodon Propensi Active Itching, [place]-Acetam ty to Rash 01-17 Methodi inophen adverse 00:00: st reaction 00 s to drug Codeine Propensi Active Itching, [place] on ty to Rash 10-31 Methodi adverse 00:00: st reaction 00 s to drug Latex Propensi Active Dermatitis [place] ty to 10-31 Method[facility] adverse 00:00: st reaction 00 s to drug Morphine Propensi Active [place] ty to 10-31 Methodi adverse 00:00: st reaction 00 s to drug Nsaids Propensi Active Swelling "water [place] (Non-Porter ty to 10-31 retension Metho di roidal adverse 00:00: " st Anti-Inf reaction 00 lammator s to y Drug) drug Penicill Propensi Active Anaphylaxis [place] ins ty to 10-31 Methodi adverse 00:00: st reaction 00 s to drug Sulfa Propensi Active [facility] (Sulfona ty to 10-31 Methodi mide adverse 00:00: st Antibiot reaction 00 ics) s to drug Ketorola Propensi Active [place] c ty to 10-31 Methodi adverse 00:00: st reaction 00 s to drug Hydrocod Propensi Active Itching, [place] one ty to Swelling, 4-13 Methodi adverse Rash 00:00: st reaction 00 s to drug Methylpr Propensi Active Swelling [place] ednisolo ty to 4-13 Methodi ne adverse 00:00: st reaction 00 s to drug Family History Family Member Diagnosis Comments Start Date Stop Date Source Natural father Cancer [facility]od[facility] Natural father Dementia [facility] Natural father Heart disease [facility] Natural father Stroke [facility] Natural sister Heart disease [facility] Social History Social Habit Start Date Stop Date Quantity Comments Source Sex Assigned At [facility] ethodist Cigarettes smoked 2019-01-23 2019-01-23 [place] [facility]ianism current (pack per 00:00:00 00:00:00 day) - Reported Cigarette 2019-01-23 2019-01-23 [place] Maria Luisa ist pack-years 00:00:00 00:00:00 Tobacco use and 2019-01-23 2019-01-23 Never used [facility] ethodist exposure 00:00:00 00:00:00 Alcohol intake 2019-01-23 2019-01-23 Current [facility] thodist 00:00:00 00:00:00 non-drinker of alcohol (finding) History of tobacco 1961-06-05 2008-09-03 Current smoker Ammon herbert Sabianism use 00:00:00 00:00:00 Smoking Status Start Date Stop Date Source Former smoker 2019-01-23 00:00:00 2019-01-23 00:00:00 Nithin Ayala Medications Ordered Filled Start Stop Current Ordering Indication Dosage Frequency Signature Comments Components Source Medication Medication Date Date Medication? Clinician (SIG) Name Name aspirin Yes 81mg QD Take 81 mg [place] (ECOTRIN) 8-20 by mouth Method i 81 MG 09:43: daily. Has st enteric 50 not taken coated for two tablet days ibuprofen Yes 600mg Q8H Take 600 Xavier ston (ADVIL,MOTR 8-20 mg by Maria Luisai IN) 600 MG 09:43: mouth st tablet 50 every 8 (eight) hours as needed for mild pain. omeprazole Yes 40mg Take 40 mg [place] (PriLOSEC) 8-20 by mouth. Meth brooke 40 MG 09:43: st capsule 50 acetaminoph Yes 1000mg Take 1,000 [facility] en 8-20 mg by Methodi (TYLENOL) 09:43: mouth as st 500 MG 50 needed for tablet mild pain. lipase/prot 2019-0 Yes 2{capsu Q.[id number] Take 2 [facility] ease/amylas 8-20 le} [id number] capsules Methodi e (CREON 09:43: 3D by mouth [address] ORAL) 50 (three) times a day before meals. temazepam 2019-0 Yes 30mg QD Take 30 mg [place] (RESTORIL) 8-20 by mouth Metho di 30 mg 09:43: nightly as st capsule 50 needed for sleep. hydroxychlo 2019-0 Yes QD Take by Xavier ston roquine 8-20 mouth Methodi (PLAQUENIL) 09:43: daily. st 200 mg 50 tablet traMADol 2017-06 2019- No 50mg Q6H Take 1 [place] (ULTRAM) 50 -16 -16 tablet (50 M ethodi mg tablet 00:00: 23:59 mg total) st 00 :00 by mouth every 6 (six) hours as needed for moderate pain. timolol 2018-0 Yes Nithin (TIMOPTIC) 3-19 Methodi 0.5 % 00:00: st ophthalmic 00 solution allopurinol 2018-0 Yes Katherine greenberg (ZYLOPRIM) 2-13 Methodi 300 MG 00:00: st tablet 00 atorvastati 2018-0 Yes Katherine greenberg n (LIPITOR) 2-13 Methodi 40 MG 00:00: st tablet 00 metoprolol 2018-0 Yes 50mg Q.5D Take 50 mg [place] tartrate 2-13 by mouth 2 Metho di (LOPRESSOR) 00:00: (two) st 50 mg 00 times a tablet day. potassium 2018-0 Yes Nithin chloride 2-13 [facility]i (K-DUR) 20 00:00: st MEQ CR 00 tablet torsemide 2018-0 Yes 20mg Take 20 mg Ammon herbert (DEMADEX) 2-13 by mouth Method i 20 MG 00:00: as needed. st tablet 00 Procedures This patient has no known procedures. Plan of Care Planned Activity Planned Date Details Comments Source Future Scheduled 2020-01-04 INFLUENZA VACCINE Katherine greenberg [facility] Test 00:00:00 [code = INFLUENZA VACCINE] Future Scheduled 2012 65+ PNEUMOCOCCAL Nithin [facility] Test 00:00:00 VACCINE (1 of 1 - PPSV23) [code = 65+ PNEUMOCOCCAL VACCINE (1 of 1 - PPSV23)] Future Scheduled 1997 BREAST CANCER [facility] Test 00:00:00 SCREENING [code = BREAST CANCER SCREENING] Future Scheduled 1997 COLONOSCOPY SCREENING Ammon herbert [facility] Test 00:00:00 [code = COLONOSCOPY SCREENING] Future Scheduled 1997 SHINGLES VACCINES (#1) H ambar [facility] Test 00:00:00 [code = SHINGLES VACCINES (#1)] Encounters Start End Encounter Admission Attending Care Care Encounter Source Date/Time Date/Time Type Type Clinicians Facility Department ID 2020-02-19 2020-02-19 [facility] [id number] 08:16:00 10:45:00 Encounter [facility] Di[facility] [id number] [place] [id number] Surgical [id number] [place] [address] 2020-02-18 2020-02-18 Laboratory Only, [facility] [id number] 10:27:15 10:42:15 Only Test [place] [id number] [place] [id number] [place] [id number] 353 2020-02-05 2020-02-05 [facility] [id number] 08:50:00 13:08:00 Encounter Zion Diop [id number] [place] [id number] Surgical [id number] [place] [address] 2020-02-04 2020-02-04 Laboratory Only, [facility] [id number] 08:25:11 08:40:11 Only Test [place] [id number] [place] 4.2.7.2.686 [place] [id number] 353 2020-02-04 2020-02-04 Micaela BRUCE [id number] 00:00:00 00:00:00 Only Unassigned, ISAMAR [id number] [place] [facility] [id number] [id number] 2020-02-04 2020-02-04 Letter TEO More [id number] 00:00:00 00:00:00 (Out) Maritza Harris ISAMAR [id number] [facility] [id number] [id number] 2020-01-27 2020-01-27 [facility] Acup[facility]urist Chad Reddy [facility] [id number] 12:39:10 12:54:10 Visit Lab Main [place] [id number] [place] [id number] [place] [id number] [place] [address] Building Results This patient has no known results.
--- OUTSIDE RECORDS SUMMARY | 2020-03-24 14:34 | XMS REPORT | Summary of Care ---
:1945 Author Organization [facility] Address [address] [place] [address] Care Team Providers Name Role Phone Ana Ballesteros MD Primary Care Provider Reason for Visit Reason Comments LAB WORK Auth/Cert Status Reason Specialty Diagnoses / Procedures Referred By Clarence nance Referred To Contact Phlebotomy Diagnoses [id number] Adc Pob Lab Draw Procedures cbc cmp Professional [facility] Building [address] [facility] , [address] [place] [address] Phone: Fax: Encounter Details Date Type Department Care Team Description 01/27/2020 Seat Scooper Machine Visit [facility] Pablo Soler MD [address] [place] [address] [place] [address] Pre-operative exam [facility] Pob, Adc Lab Main (Primary Dx) Building Phlebotomy Lab [facility] Building [address] [facility] , [address] [place] [address] Allergies Not on Filedocumented as of this encounter (statuses as of 01/27/2020) Medications Not on filedocumented as of this encounter (statuses as of 01/27/2020) Active Problems Not on filedocumented as of this encounter (statuses as of 01/27/2020) Social History Tobacco Use Types Packs/Day Years Used Date Never Assessed Sex Assigned at Date Recorded Not on file COVID-19 Exposure Response Date Recorded In the last month, have you been in contact with No / Unsure 01/27/2020 12:38 PM CDT someone who was confirmed or suspected to have Coronavirus / COVID-19? documented as of this encounter Last Filed Vital Signs Not on filedocumented in this encounter Nursing Notes Bev [place] - 01/27/2020 12:30 PM CDT Venipuncture collection performed by clean technique on the left forearm(s). Total of 1 attempts were made. Slight pressure and a bandage/dressing were applied to the site(s). The patient experienced no complications. The following specimens were processed according to instructions and sent to [facility] laboratories per lab order on 01/27/20: LT BLUE 1 SST RED 1 LAV PPT DK GREEN (LiHep) DK GREEN (SodH) BOWEN DK BLUE (K2) DK BLUE (S) ACD Blood Culture NIPT/NTD documented in this encounter Plan of Treatment Date Type Specialty Care Team Description 02/05/2020 Hospital Encounter Surgery Zion Soler MD [address] [place] [address] 02/05/2020 Surgery Surgery Zion Soler PHACOEMULSI FICATION OF MD Aislinn CATARACT WITH INTRAOCULAR [address] [facility] [place] [address] Name Type Priority Associated Diagnoses Order S chedule CBC WITH DIFF LAB Routine Pre-operative exam Expected : 01/27/2020, Expires: 2020 COMP. METABOLIC PANEL LAB Routine Pre-operative exam Expected: 01/27/2020, ([id number]) Expires: 2020 Health Maintenance Due Date Last Done Comments [...] Recombinant Vaccine (SHINGRIX) (1 of 2) 1997 Medicare Wellness Visit 2012 Osteoporosis Screening 2012 PNEUMOCOCCAL VACCINES 65+ (1 of 1 - PPSV23) 2012 INFLUENZA VACCINE (#1) 2020 documented as of this encounter Results Not on filedocumented in this encounter Visit Diagnoses Diagnosis Pre-operative exam - Primary Preoperative examination, unspecified Combined forms of age-related cataract o f left eye Other and combined forms of senile catar act documented in this encounter Insurance Payer Benefit Plan / Subscriber ID Effective Phone Address T ype Group Dates MEDICARE MEDICARE PART A [id number] 2012-Pre [phone] [address] X Medicare & B sent [phone] [place] [id number] [facility] [id number] 2014-Pre Indemnity AND LIFE BENEFITS sent documented as of this encounter
--- OUTSIDE RECORDS SUMMARY | 2020-03-24 14:34 | XMS REPORT | Summary of Care ---
:1945 Author Organization [facility] Address [address] [place] [address] Care Team Providers Name Role Phone Ana Ballesteros MD Primary Care Provider Reason for Visit Reason Comments LAB WORK Auth/Cert Status Reason Specialty Diagnoses / Referred By Referred To Procedures Contact Contact Clinical Medical Procedures Adc Lab Laboratory [facility] [address] [address] Encounter Details Date Type Department Care Team Description 02/04/2020 Laboratory Only [facility] Zion Soler MD [address] [place] [address] Pre-op testing Phlebotomy Only, Adc Test (Primary Dx) Lab-[address] [address] Allergies Active Allergy Reactions Severity Noted Date [...] solution both eyes 2 (two) times daily. [id number] Take by mouth. 0 Active (CREON) 36,000-114,000- [...] this encounter Nursing Notes Bev [place] - 02/04/2020 8:30 AM CDTcovid documented in this encounter Plan of Treatment Date Type Specialty Care Team Description 02/05/2020 Hospital Encounter Surgery Zion Soler MD [address] [place] [address] 02/05/2020 Anesthesia Event Surgery Suleiman Frausto, Clarence [address] [address] [phone] 02/05/2020 Surgery Surgery Zion Soler PHACOEMULSI FICATION OF MD Aislinn CATARACT WITH INTRAOCULAR [address] [place] [address] [phone] Health Maintenance Due Date Last Done Comments [...] Name Priority Date/Time Associated Diagnosis Comme nts COVID-19 (ID NOW Routine 02/04/2020 8:56 AM Pre-op testing Re sults for this RAPID TESTING) CDT procedure are in the results section. documented in this encounter Results COVID-19 (ID NOW RAPID TESTING) (02/04/2020 8:56 AM CDT) SARS-CoV-2 Rapid ID Not Detected Not Detected [facility] Specimen Swab - NASOPHARYNGEAL SWAB Narrative Performed At ID NOW COVID-19 Assay is an isothermal nucleic [facility] acid amplification test intended for the qualitative detection of nucleic acid from SARS-CoV-2 viral RNA in nasopharyngeal (DISABILITIES SERVICES OFFICER) specimens. It is used under Emergency Use Authorization (EUA) by FDA. The limit of detection (LOD) of the assay is 125 Genome Equivalents/mL. A positive result is indicative of the presence of SARS-CoV-2 RNA. Clinical correlation with patient history and other diagnostic information is necessary to determine patient infection status. A negative (Not Detected) result does not preclude SARS-CoV-2 infection. In patients with clinical symptoms and other tests that are consistent with SARS-CoV-2 infection, negative results should be treated as presumptive negative and a new specimen should be tested with alternative PCR molecular test. Invalid: Please collect a new specimen for repeat patient testing if clinically indicated. Performing Organization Address City/State/Zipcode Phone Number [facility] CLIA: [id number] [place] [address] documented in this encounter Visit Diagnoses Diagnosis Pre-op testing - Primary Preoperative examination, unspecified Combined forms of age-related cataract o f left eye Other and combined forms of senile catar act documented in this encounter Insurance Payer Benefit Plan / Subscriber ID Effective Phone Address T ype Group Dates MEDICARE MEDICARE PART A [id number] 2012-Pre [phone] [address] [place] Medicare & B sent [id number] [place] [id number] [facility] [id number] 2014-Pre Indemnity AND LIFE BENEFITS sent documented as of this encounter
--- OUTSIDE RECORDS SUMMARY | 2020-03-24 14:35 | XMS REPORT | Summary of Care ---
:[address] [facility] - [facility] Address [address] [place] [id number] Care Team Providers Name Role Phone Ana Ballesteros MD Primary Care Provider Reason for Visit Auth/Cert Status Reason Specialty Diagnoses / Procedures Referred By Clarence ontact Referred To Contact Surgery Diagnoses Combined forms of age-related cataract, left eye Combined forms of age-related cataract of left eye [H25.812] Adc Pre/Pacu/Post Procedures [facility] CODING HELP ME XCAPSL CTRC RMVL INSJ IO LENS PROSTH W/O ECP PHACOEMULSIFICATION OF CATARACT WITH INTRAOCULAR LENS IMPLANT [id number] - ME XCAPSL CTRC RMVL INSJ IO LENS PROSTH W/O ECP [address] [place], [place] [address] Phone: Fax: Encounter Details Date Type Department Care Team Description 02/05/2020 Hospital [facility] [address] [place] [address] Dr rosado [address] [place] [address] [place] [address] [place], [place] [phone] Allergies Active Allergy Reactions Severity Noted Date Comments Codeine Swelling 02/03/2020 Corticosteroids Swelling 02/03/2020 (Glucocorticoids) Gabapentin Other - See comments 02/03/2020 Hypoten samanta, syncope Hydrocodone Swelling 02/03/2020 Latex Rash High 02/03/2020 Latex, Natural Rubber Rash 02/05/2020 Causes chavis Pregabalin Other - See comments 02/03/2020 Hypoten samanta, syncope Metronidazole Swelling 02/05/2020 Morphine Hives 02/03/2020 Nsaids (Non-Steroidal Swelling 02/05/2020 Causes water Anti-Inflammatory Drug) rete ntion Tapentadol Other - See comments 02/03/2020 Hypoten samanta, syncope Penicillins Anaphylaxis 02/03/2020 Sulfa (Sulfonamide Hives 02/03/2020 Antibiotics) Ketorolac Hives 02/03/2020 documented as of this encounter (statuses as of 02/05/2020) Medications Medication Sig Dispensed Refills Start Date End Date Status atorvastatin 40 mg Take 40 mg by 0 Suspended tablet mouth at bedtime. metoprolol tartrate 50 Take 50 mg by 0 Suspended mg tablet mouth 2 (two) times daily. allopurinoL 300 mg Take 300 mg by 0 Suspended tablet mouth daily. torsemide 20 mg tablet Take 20 mg by 0 Suspended mouth. potassium chloride Take by 0 S uspended (KCL-20 ORAL) mouth. aspirin 81 mg chewable Take 81 mg by 0 Suspended tablet mouth daily. acetaminophen 325 mg Cap Take 1,500 mg 0 Suspended by mouth as needed. timoloL 0.5 % ophthalmic Place 1 Drop 0 Suspended solution in both eyes 2 (two) times daily. vhvtyi-qmwxqxzi-zpurmrk Take by 0 Suspended (CREON) 36,000-114,000- mouth. Take 2 180,000 unit CpDR capsules by mouth with meals and 1 with each snack. hydroxychloroquine Take 200 mg by 0 Suspended sulfate mouth daily. (HYDROXYCHLOROQUINE ORAL) carBAMazepine (TEGRETOL) Take 200 mg by 0 Suspended 200 mg tablet mouth daily. coconut oil 1,000 mg Cap Take by 0 Suspended mouth. omeprazole 40 mg Take 40 mg by 0 Suspended capsuleIndications: GERD mouth daily. Indications: GERD temazepam 30 mg Take 30 mg by 0 Suspended capsuleIndications: mouth at insomnia bedtime as needed. Indications: insomnia documented as of this encounter (statuses as of 02/05/2020) Active Problems Not on filedocumented as of this encounter (statuses as of 02/05/2020) Social History Tobacco Use Types Packs/Day Years Used Date Former Smoker Smokeless Tobacco: Never Used Sex Assigned at Date Recorded Not on file COVID-19 Exposure Response Date Recorded In the last month, have you been in contact with No / Unsure 02/05/2020 9:26 AM CDT someone who was confirmed or suspected to have Coronavirus / COVID-19? documented as of this encounter Last Filed Vital Signs Vital Sign Reading Time Taken Comments Blood Pressure 131/78 02/05/2020 1:00 PM CDT Pulse 59 02/05/2020 1:00 PM CDT Temperature 36.6 C (97.8 F) 02/05/2020 12:44 PM CDT Respiratory Rate 16 02/05/2020 1:00 PM CDT Oxygen Saturation 98% 02/05/2020 1:00 PM CDT Inhaled Oxygen Concentration - - Weight 78.5 kg (173 lb 1 oz) 02/03/2020 2:42 PM CDT Height 165.1 cm (5' 5") 02/03/2020 2:42 PM CDT Body Mass Index 28.8 02/03/2020 2:42 PM CDT documented in this encounter Discharge Instructions Lynn Colon RN - 02/05/2020CATARACT DISCHARGE INSTRUCTIONS 1. DO NOT Remove the eye patch. Leave on until you post-operative visit tomorrow. Keep it dry. 2. Activities as tolerated 3. Please no heavy lifting, and do not drive or operate machinery until you are seen by a doctor on your first post op day. 4. Your depth perception may be off, so walk a little slower. Be careful on steps or stairs and uneven ground and go slower around corners. 5. Most likely your eye will stay numb until tomorrow and you should not experience any extreme pain. However, if you should have bad pain or nausea, please call the doctor's office or hospital treating plant operator to get in touch with doctor. 6. For mild discomfort or a headache, you may take Tylenol, Aspirin, or Ibuprofen (in not allergic). 7. You may resume your pre-operative diet. 8. If you have any further questions or concerns, please call the office or hospital treating plant operator to getin touch with the doctor. [facility] [phone] documented in this encounter H&P Notes Zion Soler MD - 02/05/2020 12:04 PM CDTH&P Update H&P was reviewed and the patient was examined and there was no change in the patient's condition. documented in this encounter Miscellaneous Notes Nursing Note - Yasmin Hernández RN - 02/05/2020 10:05 [address]TDr. Soler made aware that patient has an allergy to Toradol - she breaks out in hives/itching. He said it "will not be a problem, give her the drops." This was relayed by Gladys Blackburn RN I heard him in the background making the statement. I restated the patient has an allergy, she reminded Dr. Soler and restated her reaction is HIVES. He said the drops in the eye will be OK, to give it. A small amount of eye drops containing Toradol (<0.0.1 cc given. Hives X [address] neck[address] Dr[address] Aguilar notified. Order received for Benadryl 25mg SIVP given. documented in this encounter Plan of Treatment Name Type Priority Associated Diagnoses Order S chedule EKG-12 LEAD ROUTINE HEART STATION Routine ONCE fo r 1 Occurrences starting 2019 until 0 Health Maintenance Due Date Last Done Comments HEPATITIS C (HCV) SCREEN 1945 DTaP,Tdap,and Td Vaccines (1 - Tdap) 1966 Breast Cancer Screening (MAMMOGRAM) 1987 COLON CANCER SCREENING ANNUAL FIT/FOBT 1997 COLON CANCER SCREENING FIT DNA EVERY 3 YEARS 1997 COLON CANCER SCREENING SIGMOIDOSCOPY EVERY 5 YEARS 1997 COLONOSCOPY 1997 Colorectal Cancer Screening 1997 Zoster Recombinant Vaccine (SHINGRIX) (1 of 2) 1997 LUNG CANCER SCREEN: Recommended for age 55-80 with 30 2002 + pack year history Medicare Wellness Visit 2012 Osteoporosis Screening 2012 PNEUMOCOCCAL VACCINES 65+ (1 of 1 - PPSV23) 2012 INFLUENZA VACCINE (#1) 2020 Depression Screening 02/04/2021 02/05/2020 documented as of this encounter Implants Implanted Type Area Thumb Sewer Device Shelf Model / Serial Identifier Expiration / Lot Date Lens, [place] #[id number] - [id number] LENS Left: Eye [place] 03/04/2024 [id number] / Implanted: Qty: 1 on 02/05/2020 by Zion Whalen MD at [facility] 4 [id number] / NA documented as of this encounter Procedures Procedure Name Priority Date/Time Associated Diagnosis Comme nts EKG-12 LEAD Routine 02/05/2020 10:43 AM CDT NOTICE OF BILLING Routine 01/27/2020 12:35 PM PRACTICES FOR MEDICARE CDT PATIENTS [facility] PATIENT FINANCIAL Routine 01/27/2020 12:34 PM POLICY CDT NO SHOW OR MISSED Routine 01/27/2020 12:34 PM APPOINTMENT POLICY CDT ACKNOWLEDGEMENT NOTICE OF PRIVACY Routine 01/27/2020 12:33 PM PRACTICES CDT CONSENT/REFUSAL FOR Routine 01/27/2020 12:33 PM DIAGNOSIS AND TREATMENT CDT CONSENT/REFUSAL FOR Routine 01/27/2020 12:32 PM DIAGNOSIS AND TREATMENT CDT ASSIGNMENT OF BENEFITS Routine 01/27/2020 12:32 PM CDT ASSIGNMENT OF BENEFITS Routine 01/27/2020 12:31 PM CDT PHYSICIAN ORDERS Routine 01/27/2020 12:01 AM CDT documented in this encounter Results Not on filedocumented in this encounter Visit Diagnoses Diagnosis Cataract, nuclear sclerotic senile, left - Primary documented in this encounter Administered Medications Medication Order MAR Action Action Date Dose Rate Site balanced salt irrig soln comb1 Given 02/05/2020 12:27 PM CDT 500 mL (BSS PLUS) ophthalmic solution 500 mL bag PRN, Starting Mon02/05/20 at 1227, Until Discontinued, Routine, Intra-op carbachoL (MIOSTAT) 0.01 % intraocular Given 02/05/2020 12:27 PM CDT 0.5 mL injection PRN, Starting Mon02/05/20 at 1227, Until Discontinued, Routine, Intra-op dexamethasone (DECADRON PHOSPHATE) Given 02/05/2020 12:28 PM CDT 0.2 mL Left Eye injection PRN, Starting Mon02/05/20 at 1228, Until Discontinued, Routine, Intra-op DUOVISC (DUOVISC VISCO ELASTIC) 3 %-4 %(0.5 Given 02/05/2020 12:23 PM CDT 1 Kit mL) 1 % (0.55 mL) intraocular injection PRN, Starting Mon02/05/20 at 1223, Until Discontinued, Routine, Intra-op EPINEPHrine 1:1,000 (1 mg/mL) (ADRENALIN) Given 02/05/2020 12:24 PM CDT 0.5 mL injection PRN, Starting Mon02/05/20 at 1224, Until Discontinued, Routine, Intra-op eye block syringe 11 mL Given 02/05/2020 12:14 PM CDT 8 mL PRN, Starting Mon02/05/20 at 1214, Until Discontinued, Intra-op gentamicin injection Given 02/05/2020 12:26 PM CDT 0.2 mL Left Eye PRN, Starting Mon02/05/20 at 1226, Until Discontinued, BONNY, Intra-op Hyaluronidase, Human Recomb. Given 02/05/2020 12:26 PM CDT 150 U nits Left Eye (HYLENEX) injection PRN, Starting Mon02/05/20 at 1226, Until Discontinued, Routine, Intra-op lactated ringers IV infusion 1,000 mL at 75 mL/hr, 1,000 mL, IV Infusion, CONT INUOUS, Starting Mon02/05/20 at 1230, Until Discontinued, Routine, PACU frybeomy-iawrkycwh-cxtnxbhbdtaad (MAXITROL) Given 07/2019 12:25 PM 0.5 Inches 3.5 mg/g-10,000 unit/g-0.1 % ophthalmic CDT ointment PRN, Starting Mon02/05/20 at 1225, Until Discontinued, Routine, Intra-op water for irrigation irrigation solution Given 02/05/2020 12:15 PM CDT 30 mL PRN, Starting Mon02/05/20 at 1215, Until Discontinued, Routine, Intra-op Medication Order MAR Action Action Date Dose Rate Site cyclopentolate (CYCLOGYL) 1 % Given 02/05/2020 11:[address] op ophthalmic drops 1 Drop 1 Drop, Left Eye, ONCE, 1 dose, Mon02/05/20 at 1115, Routine, DSU Pre-op Given 02/05/2020 11:03 AM CDT 1 Drop diphenhydrAMINE (BENADRYL) injection 25 mg Given 02/05/2020 9:55 AM CDT 25 mg 25 mg, Slow IV Push, ONCE, 1 dose, Mon02/05/20 at 1145, Routine, DSU Pre-op lactated ringers IV infusion New Bag 02/05/2020 9:34 AM CDT 1,000 mL 20 mL/hr 1,000 mL at 20 mL/hr, 1,000 mL, IV Infusion, ONCE, 1 dose, Mon02/05/20 at 0900, Routine, DSU Pre-op mydriatic #5 ophthalmic solution 0.5 mL Given 02/05/2020 10:04 A M CDT 0.5 mL syringe 0.5 mL, Left Eye, ONCE, 1 dose, Mon02/05/20 at 0900, Routine phenylephrine (AYALA-SYNEPHRINE) 2.5 % Given 02/05/2020 11:21 AM C DT 1 Drop ophthalmic drops 1 Drop 1 Drop, Left Eye, ONCE, 1 dose, Mon02/05/20 at 1115, Routine, DSU Pre-op Given 02/05/2020 11:06 AM CDT 1 Drop tropicamide (MYDRIACYL) 1 % ophthalmic drops Given 07/2019 11:26 AM CDT 1 Drop 1 Drop 1 Drop, Left Eye, ONCE, 1 dose, Mon02/05/20 at 1115, Routine, DSU Pre-op Given 02/05/2020 11:10 AM CDT 1 Drop documented in this encounter Insurance Payer Benefit Plan / Subscriber ID Effective Phone Address T e Group Dates MEDICARE MEDICARE PART A [id number] 2012-Pre [phone] [address] [place] Medicare & B sent [phone] [place] [id number] [facility] [id number] 2014-Pre Indemnity AND LIFE BENEFITS sent RT 1 [phone] (Home) [place] [address] documented as of this encounter
--- OUTSIDE RECORDS SUMMARY | 2020-03-24 14:36 | XMS REPORT | Summary of Care ---
:1945 Author Organization [facility] - [facility] Address [address] [place] [address] Care Team Providers Name Role Phone Ana Ballesteros MD Primary Care Provider Reason for Visit Auth/Cert Status Reason Specialty Diagnoses / Procedures Referred By C ontact Referred To Contact Surgery Diagnoses Combined forms of age-related cataract, right eye Combined forms of age-related cataract of right eye [H25.811] Adc Pre/Pacu/Post Procedures [facility] CODING HELP CA XCAPSL CTRC RMVL INSJ IO LENS PROSTH W/O ECP PHACOEMULSIFICATION OF CATARACT WITH INTRAOCULAR LENS IMPLANT [address] [place] [phone] Phone: Fax: Encounter Details Date Type Department Care Team Description 02/19/2020 [facility] [address] [place] [address] Dr rosado [address] [place] [address] [place] [address] [place], [place] [phone] Allergies Active Allergy Reactions Severity Noted Date Comments Codeine Swelling 02/03/2020 Corticosteroids Swelling 02/03/2020 (Glucocorticoids) Gabapentin Other - See comments 02/03/2020 Hypoten samanta, syncope Hydrocodone Swelling 02/03/2020 Latex Rash High 02/03/2020 Latex, Natural Rubber Rash 02/05/2020 Causes chavis Pregabalin Other - See comments 02/03/2020 Hypoten samanta, syncope Metronidazole Swelling 02/05/2020 Morphine Hives 02/03/2020 Egmvol-Nbtjxvruyb-Za-Keto Hives 02/17/2020 r-Josemanuel Nsaids (Non-Steroidal Swelling 02/05/2020 Causes water Anti-Inflammatory Drug) rete ntion Tapentadol Other - See comments 02/03/2020 Hypoten samanta, syncope Penicillins Anaphylaxis 02/03/2020 Sulfa (Sulfonamide Hives 02/03/2020 Antibiotics) Ketorolac Hives 02/03/2020 documented as of this encounter (statuses as of 02/19/2020) Medications Medication Sig Dispensed Refills Start Date [...] solution both eyes 2 (two) times daily. fgiand-akdnuvkd-hbmrcyr Take by mouth. 0 Active (CREON) 36,000-114,000- Take 2 capsules 180,000 unit CpDR by mouth with meals and 1 with each snack. hydroxychloroquine Take 200 mg by 0 Active sulfate mouth daily. (HYDROXYCHLOROQUINE ORAL) carBAMazepine (TEGRETOL) Take 200 mg by 0 Active 200 mg tablet mouth daily. coconut oil 1,000 mg Cap Take by mouth. 0 Active omeprazole 40 mg Take 40 mg by 0 Active capsuleIndications: GERD mouth daily. Indications: GERD temazepam 30 mg Take 30 mg by 0 Active capsuleIndications: mouth at insomnia bedtime as needed. Indications: insomnia documented as of this encounter (statuses as of 02/19/2020) Active Problems Not on filedocumented as of this encounter (statuses as of 02/19/2020) Social History Tobacco Use Types Packs/Day Years Used Date Former Smoker Smokeless Tobacco: Never Used Sex Assigned at Date Recorded Not on file COVID-19 Exposure Response Date Recorded In the last month, have you been in contact with No / Unsure 02/17/2020 2:55 PM CDT someone who was confirmed or suspected to have Coronavirus / COVID-19? documented as of this encounter Last Filed Vital Signs Vital Sign Reading Time Taken Comments Blood Pressure 124/55 02/19/2020 10:33 AM CDT Pulse 57 02/19/2020 10:34 AM CDT Temperature 36.3 C (97.3 F) 02/19/2020 10:33 AM CDT Respiratory Rate 14 02/19/2020 10:34 AM CDT Oxygen Saturation 99% 02/19/2020 10:34 AM CDT Inhaled Oxygen Concentration - - Weight 78.5 kg (173 lb 1 oz) 02/13/2020 9:36 AM CDT Height 165.1 cm (5' 5") 02/13/2020 9:36 AM CDT Body Mass Index 28.8 02/13/2020 9:36 AM CDT documented in this encounter Discharge Instructions Jennifer Heaton RN - 02/19/2020CATARACT DISCHARGE INSTRUCTIONS 1. DO NOT Remove the [...] please call the doctor's office or hospital felling machine operator to get in touch with doctor. 6. For mild discomfort or a headache, you may take Tylenol, Aspirin, or Ibuprofen (in not allergic). 7. You may resume your pre-operative diet. 8. If you have any further questions or concerns, please call the office or hospital felling machine operator to getin touch with the doctor. documented in this encounter H&P Notes Zion Soler MD - 02/19/2020 9:49 AM CDTH&P Update H&P was reviewed and the patient was examined and there was no change in the patient's condition. documented in this encounter Plan of Treatment Health Maintenance Due Date [...] 2012 INFLUENZA VACCINE (#1) 2020 Depression Screening 02/18/2021 02/19/2020 documented as of this encounter Implants Implanted Type Area Rigging Supervisor Device Shelf Model / Serial Identifier Expiration / Lot Date Lens, [place] #Sn60wf - [id number] LENS Left: Eye [place] 03/04/2024 [id number] / Implanted: Qty: 1 on 02/05/2020 by Zion Whalen MD at [facility] 9 [id number] / NA Lens, [place] #[id number] - [id number] LENS Right: [place] 07/15/2024 [id number] / Implanted: Qty: 1 on 02/19/2020 by Zion Whalen MD at [facility] Eye [id number] / N/A documented as of this encounter Procedures Procedure Name Priority Date/Time Associated Diagnosis Comme nts CONSENT/REFUSAL FOR Routine 02/18/2020 10:27 AM DIAGNOSIS AND TREATMENT CDT ASSIGNMENT OF BENEFITS Routine 02/18/2020 10:27 AM CDT NOTICE OF PRIVACY Routine 02/18/2020 10:26 AM PRACTICES CDT CONSENT/REFUSAL FOR Routine 02/18/2020 10:26 AM DIAGNOSIS AND TREATMENT CDT ASSIGNMENT OF BENEFITS Routine 02/18/2020 10:25 AM CDT documented in this encounter Results Not on filedocumented in this encounter Visit Diagnoses Diagnosis Cataract, nuclear sclerotic senile, righ t - Primary documented in this encounter Administered Medications Medication Order MAR Action Action Date Dose Rate Site balanced salt irrig soln comb1 Given 02/19/2020 10:03 AM CDT 500 mL (BSS PLUS) ophthalmic solution 500 mL bag PRN, Starting Mon02/19/20 at 0911, Until Discontinued, Routine, Intra-op carbachoL (MIOSTAT) 0.01 % intraocular Given 02/19/2020 10:05 AM CDT 1.5 mL injection PRN, Starting Mon02/19/20 at 0911, Until Discontinued, Routine, Intra-op dexamethasone (DECADRON PHOSPHATE) Given 02/19/2020 10:15 AM CDT 0.3 mL Right Eye injection PRN, Starting Mon02/19/20 at 0911, Until Discontinued, Routine, Intra-op DUOVISC (DUOVISC VISCO ELASTIC) 3 %-4 %(0.5 Given 02/19/2020 10:12 AM CDT 1 Kit mL) 1 % (0.55 mL) intraocular injection PRN, Starting Mon02/19/20 at 0912, Until Discontinued, Routine, Intra-op EPINEPHrine 1:1,000 (1 mg/mL) Given 02/19/2020 10:03 AM CDT 0.5 mg Right Eye (ADRENALIN) injection PRN, Starting Mon02/19/20 at 0912, Until Discontinued, Routine, Intra-op eye block syringe 11 mL Given 02/19/2020 9:55 AM CDT 9 mL PRN, Starting Mon02/19/20 at 0912, Until Discontinued, Intra-op gentamicin injection Given 02/19/2020 10:14 AM CDT 0.2 mL Righ t Eye PRN, Starting Mon02/19/20 at 0913, Until Discontinued, BONNY, Intra-op Hyaluronidase, Human Recomb. Given 02/19/2020 9:55 AM CDT 150 U nits Right Eye (HYLENEX) injection PRN, Starting Mon02/19/20 at 0914, Until Discontinued, Routine, Intra-op hlxblijq-ojqfhdadj-zcxakumcqfjfc (MAXITROL) Given 02/03 10:14 AM 0.5 Inches 3.5 mg/g-10,000 unit/g-0.1 % ophthalmic CDT ointment PRN, Starting Mon02/19/20 at 0915, Until Discontinued, Routine, Intra-op sodium chloride (NS) injection Given 02/19/2020 10:14 AM CDT 10 mL PRN, Starting Mon02/19/20 at 0915, Until Discontinued, Routine, Intra-op water for irrigation irrigation Given 02/19/2020 10:00 AM CDT 30 mL Right Eye solution PRN, Starting Mon02/19/20 at 1000, Until Discontinued, Routine, Intra-op Medication Order MAR Action Action Date Dose Rate Site cyclopentolate (CYCLOGYL) 1 % Given 02/19/2020 8:[address] op ophthalmic drops 1 Drop 1 Drop, Right Eye, ONCE, 1 dose, Mon02/19/20 at 0945, Routine lactated ringers IV infusion New Bag 02/19/2020 8:39 AM CDT 1,000 mL 20 mL/hr 1,000 mL at 20 mL/hr, 1,000 mL, IV Infusion, ONCE, 1 dose, Mon02/19/20 at 0845, Routine, DSU Pre-op phenylephrine (AYALA-SYNEPHRINE) 2.5 % Given 02/19/2020 8:38 AM C DT 1 Drop ophthalmic drops 1 Drop 1 Drop, Right Eye, ONCE, 1 dose, Mon02/19/20 at 0945, Routine tropicamide (MYDRIACYL) 1 % ophthalmic drops Given 8:38 AM CDT 1 Drop 1 Drop 1 Drop, Right Eye, ONCE, 1 dose, Mon02/19/20 at 0945, Routine documented in this encounter Insurance Payer Benefit Plan / Subscriber ID Effective Phone Address T ype Group Dates MEDICARE MEDICARE PART A [id number] 2012-Pre [phone] [address] X Medicare & B sent [phone] [place] [id number] [facility] [id number] 2014-Pre Indemnity AND LIFE BENEFITS sent RT 1 BX [phone] (Home) [place], [place] [id number] documented as of this encounter
--- OUTSIDE RECORDS SUMMARY | 2020-03-24 14:36 | XMS REPORT | Summary of Care ---
:1945 Author Organization [facility] Address [address] [place] [id number] Care Team Providers Name Role Phone Ana Ballesteros MD Primary Care Provider Reason for Visit Reason Comments LAB WORK Auth/Cert Status Reason Specialty Diagnoses / Referred By Referred To Procedures Contact Contact Clinical Medical Diagnoses Pre-op testing Ad[facility] Lab Laboratory Procedures COVID-19 (ID NOW RAPID TESTING) COVID-19 (ID NOW RAPID TESTING) [[id number]] [address] [place] [address] Encounter Details Date Type Department Care Team Description 02/18/2020 Laboratory Only [facility] Zion Soler MD [address] [place] [phone] Pre-operative Phlebotomy Only, Adc Test clearance ([facility] [facility]) [address] [place] [phone] Allergies Active Allergy Reactions Severity Noted Date Comments Codeine Swelling 02/03/2020 Corticosteroids Swelling 02/03/2020 (Glucocorticoids) Gabapentin Other - See comments 02/03/2020 Hypoten samanta, syncope Hydrocodone Swelling 02/03/2020 Latex Rash High 02/03/2020 Latex, Natural Rubber Rash 02/05/2020 Causes chavis Pregabalin Other - See comments 02/03/2020 Hypoten samanta, syncope Metronidazole Swelling 02/05/2020 Morphine Hives 02/03/2020 Poyiry-Vfhvdqlckv-Uc-Keto Hives 02/17/2020 r-Josemanuel Nsaids (Non-Steroidal Swelling 02/05/2020 Causes water Anti-Inflammatory Drug) rete ntion Tapentadol Other - See comments 02/03/2020 Hypoten samanta, syncope Penicillins Anaphylaxis 02/03/2020 Sulfa (Sulfonamide Hives 02/03/2020 Antibiotics) Ketorolac Hives 02/03/2020 documented as of this encounter (statuses as of 02/18/2020) Medications Medication Sig Dispensed Refills Start Date [...] solution both eyes 2 (two) times daily. fpdniv-vqufvcfx-reorbgj Take by mouth. 0 Active (CREON) 36,000-114,000- [...] as of this encounter (statuses as of 02/18/2020) Active Problems Not on filedocumented as of this encounter (statuses as of 02/18/2020) Social History Tobacco Use Types Packs/Day Years [...] this encounter Nursing Notes Bev Wakefield - 02/18/2020 10:30 AM CDTcovid documented in this encounter Plan of Treatment Date Type Specialty Care Team Description 02/19/2020 Hospital Encounter Surgery Zion Soler MD [address] [facility] [place] [phone] 02/19/2020 Anesthesia Event Surgery Suleiman Frausto C [address] [phone] 02/19/2020 Surgery Surgery Zion Soler PHACOEMULSI FICATION OF MD Aislinn CATARACT WITH INTRAOCULAR [address] [place] [phone] Name Type Priority Associated Diagnoses Order S katelynn COVID-19 (ID NOW RAPID LAB Routine Pre-operative mimi odom Expected: 02/18/2020, TESTING) Expires: 2020 Health Maintenance Due Date Last [...] of this encounter Implants Implanted Type Area Ice Cream Scooper Device Shelf Model / Serial Identifier Expiration / Lot Date Lens, [place] #[id number] - [id number] LENS Left: Eye [place] 03/04/2024 [id number] / Implanted: Qty: 1 on 02/05/2020 by Zion Whalen MD at [facility] 1 [id number] / NA documented as of this encounter Results Not on filedocumented in this encounter Visit Diagnoses Diagnosis Pre-operative clearance - Primary Preoperative examination, unspecified Combined forms of age-related cataract o f right eye Other and combined forms of senile catar act documented in this encounter Additional Health Concerns Infection Onset Date Last Indicated Resolved Time COVID-19 Rule Out 02/18/2020 02/18/2020 documented as of this encounter Insurance Payer Benefit Plan / Subscriber ID Effective Phone Address T ype Group Dates MEDICARE MEDICARE PART A [id number] 2012-Pre [phone] [address] [place] X Medicare & B sent [id number] [place] [phone] [facility] [id number] 2014-Pre Indemnity AND LIFE BENEFITS sent RT 1 BX [phone] (Home) [place], [place] [address] documented as of this encounter
--- NOTE | 2020-03-24 15:10 | RAD REPORT ---
EXAM DESCRIPTION: CT - Ct Stroke Brain Wo Cont - 03/24/2020 3:01 pm CLINICAL HISTORY: Visual disturbance COMPARISON: September 2019 MRI TECHNIQUE: Computed axial tomography of the head was obtained. All CT scans are performed using dose optimization technique as appropriate and may include automated exposure control or mA/KV adjustment according to patient size. FINDINGS: An intracranial bleed is not seen . The ventricles are normal in caliber. No extra-axial fluid collection is noted. Mild low-density areas within periventricular, deep and subcortical white matter likely ischemic rai ges secondary to small vessel disease Fluid within the sinuses/ mastoids is not seen. IMPRESSION: No acute intracranial abnormality is seen. If patient's symptoms persist MRI of the bra in would be recommended. Wanda of the emergency room was notified at 3:04 p.m. on March 24, 2020
--- NOTE | 2020-03-24 16:37 | ER ---
Nurse's Notes [facility] Name: Adela Galaviz Age: 74 yrs Sex: Female : 1945 Arrival Date: 03/24/2020 Time: 14:32 Bed 6 Private MD: Connor Curran F Diagnosis: Visual disturbances;Visual field defects-resolved Presentation: 03/24 14:43 Chief complaint: Patient states: Awoke 2 weeks ago with no vision in her left eye ll1 Partial vision in right eye. Resolved now. Slight BAUMAN. Sent by Dr. Curran for stroke eval. States she has weird vision changes since. Coronavirus screen: Client denies travel out of the [place] in the last 14 days. At this time, the client does not indicate any symptoms associated with coronavirus-19. Ebola Screen: Patient denies travel to an Ebola-affected area in the 21 days before illness onset. Initial Sepsis Screen: Does the patient meet any 2 criteria? No. Patient's initial sepsis screen is negative. Does the patient have a suspected source of infection? No. Patient's initial sepsis screen is negative. Risk Assessment: Do you want to hurt yourself or someone else? Patient reports no desire to harm self or others. Onset of symptoms was March 11, 2020. 14:43 Method Of Arrival: Ambulatory ll1 14:43 Acuity: JASON 3 ll1 Historical: - Allergies: 14:49 PENICILLINS; ll1 14:49 steroids; ll1 14:49 Sulfa (Sulfonamide Antibiotics); ll1 14:49 Morphine; ll1 14:49 [place]; ll1 14:49 codeine sulfate; ll1 14:49 Toradol; ll1 14:49 NSAIDS; ll1 14:49 Latex, Natural Rubber; ll1 14:49 Neurontin; ll1 14:49 Lyrica; ll1 14:49 metronidazole; ll1 14:49 Ilevro; ll1 - PMHx: 14:51 Fibromyalgia; TIA; gastritis; Diverticulitis; Chronic Pancreatitis; High Cholesterol; ll1 Hypertension; Gout; skin cancer; - PSHx: 14:51 Appendectomy; Hysterectomy; Cholecystectomy; colon resection; bilateral hips; ll1 - Immunization history:: Flu vaccine is not up to date. - Social history:: Smoking status: Patient/guardian denies using tobacco, the patient reports quitting approximately 11 years ago. Screenin:03 Abuse screen: Denies threats or abuse. Denies injuries from another. Nutritional em screening: No deficits noted. Tuberculosis screening: No symptoms or risk factors identified. Fall Risk None identified. Assessment: 15:05 General: Appears in no apparent distress. comfortable, Behavior is calm, cooperative, em appropriate for age, Reports having blindness in the left eye for several minutes and half of the right eye blindness 2 weeks ago, lasted several minutes then resolved itself, has followed up with neuro and ophthalmology, reports an occipital headache that has resolved. Pain: Denies pain. Neuro: Level of Consciousness is awake, alert, obeys commands, Oriented to person, place, time, situation, Appropriate for age. Cardiovascular: Capillary refill < 3 seconds Patient's skin is warm and dry. Respiratory: Airway is patent Respiratory effort is even, unlabored, Respiratory pattern is regular, symmetrical. GI: Patient currently denies nausea, vomiting. Derm: Skin is intact, is fragile, is thin, Skin is pink, warm \T\ dry. Musculoskeletal: Capillary refill < 3 seconds, Range of motion: intact in all extremities. 16:30 Reassessment: pt request to leave, states she can just wait and make a follow up em appointment with her DrLuis, states she is tired of waiting, MRI has been notified, Dr. Santana notified. 16:35 Reassessment: Dr. Santana at bedside. em Vital Signs: 14:43 Pulse 63; Resp 17; Temp 98.9; Pulse Ox 99% ; Weight 78.47 kg; Height 5 ft. 5 in. ll1 (165.10 cm); Pain 0/10; 15:18 BP 138 / 64; em 14:43 Body Mass Index 28.79 (78.47 kg, 165.10 cm) ll1 ED Course: 14:32 Patient arrived in ED. ag5 14:33 Connor Curran MD is Private Physician. ag5 14:48 Triage completed. ll1 14:51 Arm band placed on Patient placed in an exam room, on a stretcher. ll1 14:55 Ernesto Foy, RN is Primary Nurse. em 15:01 CT-STROKE BRAIN W/O CONTRAST CT In Process Unspecified. EDMS 15:03 Patient moved back from CT. em 15:03 Patient has correct armband on for positive identification. Placed in gown. Bed in low em position. Call light in reach. Door closed. Head of bed elevated. 15:08 Otilio Santana MD is Attending Physician. kdr 16:36 Connor Curran MD is Referral Physician. kdr 16:42 No provider procedures requiring assistance completed. Patient did not have IV access em during this emergency room visit. Administered Medications: No medications were administered Outcome: 16:36 Discharge ordered by . kdr 16:42 Discharged to home ambulatory. em 16:42 Condition: good 16:42 Discharge instructions given to patient, Instructed on discharge instructions, follow up and referral plans. Demonstrated understanding of instructions, follow-up care. 16:43 Patient left the ED. em Signatures: Dispatcher [employer] EDMS Otilio Santana MD MD [facility] Ernesto Foy, RN RN Royer Vance ag5 Junior Harris RN RN ll1
--- NOTE | 2020-03-24 16:37 | EDPHYS ---
Physician Documentation [facility] Name: Adela Galaviz Age: 74 yrs Sex: Female : 1945 Arrival Date: 03/24/2020 Time: 14:32 Bed 6 Private MD: Connor Curran F ED Physician Otilio Santana HPI: 03/24 16:38 This 74 yrs old Female presents to ER via Ambulatory with complaints of Loss kdr Of Vision, Headache. 16:39 The patient's problem is reported as visual difficulty, decreased visual field. Onset: kdr The symptoms/episode began/occurred acutely, suddenly, 2 week(s) ago. Duration: The episodes are intermittent, Symptoms resolved after a few minutes. Context: occurred at home, occurred while the patient was light activity . The symptoms are alleviated by nothing. The symptoms are aggravated by nothing. Associated signs and symptoms: The patient has no apparent associated signs or symptoms. Severity of symptoms: At their worst the symptoms were very mild in the emergency department the symptoms have resolved. Patient's baseline: Neuro: alert and fully oriented, Motor: no deficits, Ambulation: walks without assistance, Speech: normal, The patient has a previous history of TIA. The patient has experienced a previous episode, many years ago. The patient has not recently seen a physician. Historical: - Allergies: 14:49 PENICILLINS; ll1 14:49 steroids; ll1 14:49 Sulfa (Sulfonamide Antibiotics); ll1 14:49 Morphine; ll1 14:49 [place]; ll1 14:49 codeine sulfate; ll1 14:49 Toradol; ll1 14:49 NSAIDS; ll1 14:49 Latex, Natural Rubber; ll1 14:49 Neurontin; ll1 14:49 Lyrica; ll1 14:49 metronidazole; ll1 14:49 Ilevro; ll1 - PMHx: 14:51 Fibromyalgia; TIA; gastritis; Diverticulitis; Chronic Pancreatitis; High Cholesterol; ll1 Hypertension; Gout; skin cancer; - PSHx: 14:51 Appendectomy; Hysterectomy; Cholecystectomy; colon resection; bilateral hips; ll1 - Immunization history:: Flu vaccine is not up to date. - Social history:: Smoking status: Patient/guardian denies using tobacco, the patient reports quitting approximately 11 years ago. ROS: 16:39 Constitutional: Negative for fever, chills, and weight loss, ENT: Negative for injury, kdr pain, and discharge, Neck: Negative for injury, pain, and swelling, Cardiovascular: Negative for chest pain, palpitations, and edema, Respiratory: Negative for shortness of breath, cough, wheezing, and pleuritic chest pain, Abdomen/GI: Negative for abdominal pain, nausea, vomiting, diarrhea, and constipation, Back: Negative for injury and pain, : Negative for injury, bleeding, discharge, and swelling, MS/Extremity: Negative for injury and deformity, Skin: Negative for injury, rash, and discoloration, Psych: Negative for depression, anxiety, suicide ideation, homicidal ideation, and hallucinations, Allergy/Immunology: Negative for hives, rash, and allergies, Endocrine: Negative for neck swelling, polydipsia, polyuria, polyphagia, and marked weight changes, Hematologic/Lymphatic: Negative for swollen nodes, abnormal bleeding, and unusual bruising. 16:39 Neuro: Positive for headache, visual changes. Exam: 16:39 Radiologist reports: Negative kdr 16:39 Constitutional: This is a well developed, well nourished patient who is awake, alert, and in no acute distress. Head/Face: Normocephalic, atraumatic. Eyes: Pupils equal round and reactive to light, extra-ocular motions intact. Lids and lashes normal. Conjunctiva and sclera are non-icteric and not injected. Cornea within normal limits. Periorbital areas with no swelling, redness, or edema. Neck: Trachea midline, no thyromegaly or masses palpated, and no cervical lymphadenopathy. Supple, full range of motion without nuchal rigidity, or vertebral point tenderness. No Meningismus. Chest/axilla: Normal chest wall appearance and motion. Nontender with no deformity. No lesions are appreciated. Cardiovascular: Regular rate and rhythm with a normal S1 and S2. No gallops, murmurs, or rubs. Normal PMI, no JVD. No pulse deficits. Respiratory: Lungs have equal breath sounds bilaterally, clear to auscultation and percussion. No rales, rhonchi or wheezes noted. No increased work of breathing, no retractions or nasal flaring. Abdomen/GI: Soft, non-tender, with normal bowel sounds. No distension or tympany. No guarding or rebound. No evidence of tenderness throughout. Back: No spinal tenderness. No costovertebral tenderness. Full range of motion. Skin: Warm, dry with normal turgor. Normal color with no rashes, no lesions, and no evidence of cellulitis. MS/ Extremity: Pulses equal, no cyanosis. Neurovascular intact. Full, normal range of motion. Neuro: Awake and alert, GCS 15, oriented to person, place, time, and situation. Cranial nerves II-XII grossly intact. Motor strength 5/5 in all extremities. Sensory grossly intact. Cerebellar exam normal. Normal gait. Psych: Awake, alert, with orientation to person, place and time. Behavior, mood, and affect are within normal limits. Vital Signs: 14:43 Pulse 63; Resp 17; Temp 98.9; Pulse Ox 99% ; Weight 78.47 kg; Height 5 ft. 5 in. ll1 (165.10 cm); Pain 0/10; 15:18 BP 138 / 64; em 14:43 Body Mass Index 28.79 (78.47 kg, 165.10 cm) ll1 MDM: 15:04 ED course: head CT negative per Dr. Chiang at 1505. snw 16:36 Patient medically screened. kdr 16:39 Data reviewed: vital signs, nurses notes, lab test result(s), radiologic studies. kdr Counseling: I had a detailed discussion with the patient and/or guardian regarding: the historical points, exam findings, and any diagnostic results supporting the discharge/admit diagnosis, lab results, radiology results, the need for outpatient follow up. ED course: The patient did not want to wait for the MRI that had been ordered - she wanted to follow-up with Dr. Curran instead. Since it had been a few weeks since the symptoms occurred and quickly resolved, I deemed that it was safe for her to be discharged and follow-up with Dr. Curran. 03/24 15:08 Order name: Glucose, Ancillary Testing; Complete Time: 15:26 EDMS 03/24 14:50 Order name: CT-STROKE BRAIN W/O CONTRAST CT; Complete Time: 15:26 snw 03/24 14:50 Order name: FSBS; Complete Time: 14:57 snw Administered Medications: No medications were administered Disposition: 03/24/20 16:36 Discharged to Home. Impression: Visual disturbances, Visual field defects - resolved. - Condition is Stable. - Discharge Instructions: Visual Disturbances. - Medication Reconciliation Form, Thank You Letter form. - Follow up: Connor Curran MD; When: 2 - 3 days; Reason: If symptoms return, Further diagnostic work-up, Recheck today's complaints, Continuance of care, Re-evaluation by your physician. Signatures: Dispatcher [employer] [facility] Otilio Santana MD MD kdr Waters, Shelly, FRYLINE ATTENDANT-C FRYLINE ATTENDANT-Csnw Ernesto Foy, RN RN em Junior Harris RN RN ll1 Corrections: (The following items were deleted from the chart) 15:02 14:59 Head Brain Wo Cont+CT.RAD.BRZ ordered. [facility] 16:43 16:36 03/24/2020 16:36 Discharged to Home. Impression: Visual disturbances; Visual em field defects - resolved. Condition is Stable. Forms are Medication Reconciliation Form, Thank You Letter, Antibiotic Education, Prescription Opioid Use. Follow up: Connor Curran; When: 2 - 3 days; Reason: If symptoms return, Further diagnostic work-up, Recheck today's complaints, Continuance of care, Re-evaluation by your physician. kdr
[2020-03-24 16:58] VITALS: BP 138/64; TEMP 98.9; O2SAT 99
== END 2020-03-24 16:43 | disposition home or self-care (01) ==
LOC: ER 14:31
DX: H53.9 Unspecified visual disturbance (principal); R51.9 Headache, unspecified; I10 Essential (primary) hypertension; Z88.5 Allergy status to narcotic agent; Z88.6 Allergy status to analgesic agent; Z88.0 Allergy status to penicillin; Z88.2 Allergy status to sulfonamides; Z88.8 Allergy status to other drugs, medicaments and biological substances; Z91.040 Latex allergy status; Z91.048 Other nonmedicinal substance allergy status
CPT/HCPCS: 70450; 82947; 99284